=== PATIENT | female | born 1945 | race African-American/Black ===

== ENCOUNTER → 2016-11-27 | Outpatient (CLI) | payer MEDICARE, MEDICAID | LOC: WI 13:31 | PROVIDERS: ATTEND Internal Medicine | DX: Z12.31 Encounter for screening mammogram for malignant neoplasm of breast (principal) | CPT/HCPCS: 77067; G0202 ==

== ENCOUNTER 2017-07-06 10:23 | Emergency (ER) | payer MEDICARE, MEDICAID ==
--- NOTE | 2017-07-06 10:48 | ER Document Report ---
ED Fall <ALFREDA DOMINGO - Last Filed: 07/06/17 12:57> - General Mode of Arrival: Ambulatory Information source: Patient TRAVEL OUTSIDE OF THE [place] IN LAST 30 DAYS: No <TONI ROBLES - Last Filed: 07/06/17 13:27> - General Chief Complaint: Fall Stated Complaint: FALL/RIGHT HIP PAIN Time Seen by Provider: 07/06/17 10:36 Notes: Patient is a 72 year old female that presents to the emergency department today with complaints of a fall that occurred this morning. Patient states that she usually walks with a cane. Patient states she was getting out of bed this morning for the first time so she was not using a cane when she fell. Patient complains of right hip/side pain. Patient states she was unable to get up, EMS helped her up on their arrival. (TONI ROBLES) - Related data Allergies/Adverse Reactions: quetiapine fumarate [From Seroquel] Allergy (Unknown, Verified 07/04/16 09:17) pt unsure Past Medical History - General Information source: Patient - Social History Smoking Status: Never Smoker Cigarette use (# per day): No Chew tobacco use (# tins/day): No Frequency of alcohol use: None Drug Abuse: None Lives with: Family Family History: Reviewed & Not Pertinent Patient has suicidal ideation: No Patient has homicidal ideation: No - Past Medical History Cardiac Medical History: Reports: Hx Hypertension Pulmonary Medical History: Reports: Hx Asthma Neurological Medical History: Reports: Hx Cerebrovascular Accident - 2008, no residual effects, Hx Seizures - (only once) February 2016 (low sodium/potassium) Endocrine Medical History: Reports: Hx Hypothyroidism - Left Thyroidectomy Musculoskeltal Medical History: Reports Hx Arthritis Psychiatric Medical History: Reports: Hx Depression, Hx Post Traumatic Stress Disorder, Hx Schizoaffective Disorder, Hx Schizophrenia Past Surgical History: Reports: Hx Cholecystectomy, Hx Hysterectomy - Immunizations Hx Pneumococcal Vaccination: 05/28/11 <TONI ROBLES - Last Filed: 07/06/17 13:27> Review of Systems - Review of Systems Constitutional: No symptoms reported EENT: No symptoms reported Cardiovascular: No symptoms reported Respiratory: No symptoms reported Gastrointestinal: No symptoms reported Genitourinary: No symptoms reported Female Genitourinary: No symptoms reported Musculoskeletal: Other - Right hip/side pain Skin: No symptoms reported Hematologic/Lymphatic: No symptoms reported Neurological/Psychological: No symptoms reported -: Yes All other systems reviewed and negative <TONI ROBLES - Last Filed: 07/06/17 13:27> Physical Exam <ALFREDA DOMINGO - Last Filed: 07/06/17 12:57> <TONI ROBLES - Last Filed: 07/06/17 13:27> - Vital signs Vitals: Temp Pulse BP Pulse Ox 98.0 F 75 184/89 H 99 07/06/17 10:31 07/06/17 10:31 07/06/17 10:31 07/06/17 10:31 - Notes Notes: Physical Exam: General: Alert, appears age appropriate. HEENT: Normocephalic. Atraumatic. PERRL. Extraocular movements intact. Oropharynx clear. Neck: Supple. Non-tender. Respiratory: No respiratory distress. Clear and equal breath sounds bilaterally. Pain with palpation of the right inferior rib cage. Cardiovascular: Regular rate and rhythm. Abdominal: Obese. Non-tender. No distension. Normal Bowel Sounds. Back: Non-tender. No deformity or step off. Extremities: Moves all four extremities. Upper extremities: Normal inspection. Normal ROM. Lower extremities: Right hip tenderness with palpation, no pain with internal/ external manual rotation of the right hip. Tenderness with palpation at and superior to right iliac crest. Neurological: Normal cognition. AAOx4. Normal speech. Psychological: Normal affect. Normal Mood. Skin: Warm. Dry. Normal color. (TONI ROBLES) Course - Laboratory Result Diagrams: 07/06/17 11:59 07/06/17 11:59 <ALFREDA DOMINGO - Last Filed: 07/06/17 12:57> - Laboratory Result Diagrams: 07/06/17 11:59 07/06/17 11:59 <TONI ROBLES - Last Filed: 07/06/17 13:27> - Vital Signs Vital signs: Temp Pulse Resp BP Pulse Ox 98.0 F 75 184/89 H 99 07/06/17 10:31 07/06/17 10:31 07/06/17 10:31 07/06/17 10:31 - Laboratory Laboratory results interpreted by me: 07/06/17 07/06/17 07/06/17 11:00 11:59 11:59 Hgb 11.8 L Hct 34.5 L Potassium 3.5 L Est GFR ( Amer) 54 L Est GFR (Non-Af Amer) 45 L Urine Protein 30 H Urine Blood SMALL H Ur Leukocyte Esterase TRACE H Discharge <ALFREDA DOMINGO - Last Filed: 07/06/17 12:57> <TONI ROBLES - Last Filed: 07/06/17 13:27> - Discharge Clinical Impression: Hip pain, right Fall Qualifiers: Encounter type: initial encounter Qualified Code(s): W19.XXXA - Unspecified fall, initial encounter Low back pain Qualifiers: Chronicity: acute Back pain laterality: right Sciatica presence: without sciatica Qualified Code(s): M54.5 - Low back pain Condition: Stable Disposition: HOME, SELF-CARE Additional Instructions: There were no fractures found on x-ray evaluation of your injured hip and side regions. The lab work that was performed was all normal. You will be sore for a few days. You should take Tylenol for pain if needed. Always have your cane ready to help with balance when you walk. Follow-up with Dr. Ren if not improving. RETURN TO THE EMERGENCY ROOM IF ANY NEW OR WORSENING SYMPTOMS. Referrals: FRANDY REN MD [Primary Care Provider] - Follow up as needed Scribe Attestation: 07/06/17 12:56 I personally performed the services described in the documentation, reviewed and edited the documentation which was dictated to the scribe in my presence, and it accurately records my words and actions. (ALFREDA DOMINGO) Scribe Documentation - Scribe Written by Corbin:: Corbin Matson, 07/06/2017 1251 acting as scribe for :: Ashley <TONI ROBLES - Last Filed: 07/06/17 13:27>
--- NOTE | 2017-07-06 11:33 | RADIOLOGY REPORT (SQ) ---
EXAM DESCRIPTION: HIP RIGHT AP/LATERAL COMPLETED DATE/TIME: 07/06/2017 11:20 am REASON FOR STUDY: fall, R hip and LBP COMPARISON: 07/17/2016. NUMBER OF VIEWS: Two views. TECHNIQUE: AP pelvis and additional frog-leg view of the right hip. LIMITATIONS: None. FINDINGS: MINERALIZATION: Normal. RIGHT HIP: Stable hip prosthesis. LEFT HIP: Stable hip prosthesis. PUBIS AND ISCHIUM: No fracture. PELVIS: No fracture. SACRUM: No fracture or dislocation. No worrisome bone lesions. LOWER LUMBAR SPINE: No fracture or dislocation. No worrisome bone lesions. No significant disc disea se. SOFT TISSUES: No findings. OTHER: No other significant finding. IMPRESSION: STABLE BILATERAL HIP PROSTHESES. NO ACUTE FINDINGS. TECHNICAL DOCUMENTATION: JOB ID: [id number] [employer]- All Rights Reserved
--- NOTE | 2017-07-06 11:34 | RADIOLOGY REPORT (SQ) ---
EXAM DESCRIPTION: L SPINE 2 VIEWS COMPLETED DATE/TIME: 07/06/2017 11:20 am REASON FOR STUDY: fall, R hip and LBP COMPARISON: None. NUMBER OF VIEWS: Three views. TECHNIQUE: AP, lateral, and inferior coned down lateral views of the lumbar spine. LIMITATIONS: None. FINDINGS: MINERALIZATION: Normal. SEGMENTATION: Normal. No transitional anatomy. ALIGNMENT: Grade 1 anterolisthesis of L4 on L5. VERTEBRAE: Maintained height. No fracture or worrisome bone lesion. DISCS: Multilevel disc space narrowing with osteophytes. POSTERIOR ELEMENTS: Pedicles and facets are intact. No pars defect or posterior arch defects. Facet arthropathy is present. HARDWARE: None in the spine. PARASPINAL SOFT TISSUES: Normal. PELVIS: Intact as visualized. No fractures or worrisome bone lesions. SI joints intact. OTHER: No other significant finding. IMPRESSION: MULTILEVEL DEGENERATIVE CHANGES. GRADE 1 ANTEROLISTHESIS OF L 4 ON L5. NO ACUTE FINDIN GS. TECHNICAL DOCUMENTATION: JOB ID: [id number] [employer]- All Rights Reserved
[2017-07-06 11:53] LABS: APPEARANCE,URINE CLEAR; BILIRUBIN,URINE NEGATIVE (NEGATIVE); GLUCOSE, URINE NEGATIVE (NEGATIVE); KETONES,URINE NEGATIVE (NEGATIVE); LEUKOCYTE ESTERASE,URINE TRACE (NEGATIVE); NITRITE,URINE NEGATIVE (NEGATIVE); PROTEIN,URINE 30 mg/dL (NEGATIVE); URINE SPECIFIC GRAVITY 1.004; UROBILINOGEN,URINE NEGATIVE mg/dL (<2.0)
[2017-07-06 11:55] LABS: RBC,URINE RARE /HPF; WBC,URINE RARE /HPF
[2017-07-06 12:18] LABS: ABSOLUTE LYMPHOCYTES (AUTO) 1.2 10^3/uL (0.5-4.7); ABSOLUTE MONOCYTES (AUTO) 0.9 10^3/uL (0.1-1.4); ABSOLUTE NEUT (AUTO) 6.6 10^3/uL (1.7-8.2); BASOPHILS % (AUTO) 0.4 % (0-2); EOSINOPHILS % (AUTO) 0.3 % (0-6); HEMATOCRIT 34.5 % (36.0-47.0); HEMOGLOBIN 11.8 g/dL (12.0-15.5); HGB HCT DIFFERENCE 0.9; LYMPHOCYTES % (AUTO) 13.7 % (13-45); MEAN CORPUSCULAR HEMOGLOBIN 31.6 pg (27.0-33.4); MEAN CORPUSCULAR HGB CONC 34.3 g/dL (32.0-36.0); MEAN CORPUSCULAR VOLUME 92 fl (80-97); MONOCYTES % (AUTO) 10.3 % (3-13); RED BLOOD COUNT 3.75 10^6/uL (3.72-5.28); RED CELL DISTRIBUTION WIDTH 13.3 % (11.5-14.0); SEGMENTED NEUTROPHILS % (AUTO) 75.3 % (42-78); WHITE BLOOD COUNT 8.8 10^3/uL (4.0-10.5)
[2017-07-06 12:42] LABS: ALANINE AMINOTRANSFERASE 29 U/L (9-52); ALBUMIN 4.6 g/dL (3.5-5.0); ALKALINE PHOSPHATASE 77 U/L (38-126); ANION GAP 14 (5-19); ASPARTATE AMINO TRANSFERASE 25 U/L (14-36); BILIRUBIN,DIRECT 0.3 mg/dL (0.0-0.4); BILIRUBIN,TOTAL 0.9 mg/dL (0.2-1.3); BLOOD UREA NITROGEN 19 mg/dL (7-20); CALCIUM 9.7 mg/dL (8.4-10.2); CARBON DIOXIDE 26 mmol/L (22-30); CHLORIDE 99 mmol/L (98-107); CREATININE RESULT 1.18 mg/dL (0.52-1.25); GLUCOSE 101 mg/dL (75-110); POTASSIUM 3.5 mmol/L (3.6-5.0); SODIUM 138.9 mmol/L (137-145); TOTAL PROTEIN 7.6 g/dL (6.3-8.2)
[2017-07-06 13:57] VITALS: BP 159/87
== END 2017-07-06 13:45 | disposition home or self-care (01) ==
LOC: ER 10:23
DX: M25.551 Pain in right hip (principal); M54.5 Low back pain; W19.XXXA Unspecified fall, initial encounter; Y93.89 Activity, other specified; Y92.003 Bedroom of unspecified non-institutional (private) residence as the place of occurrence of the external cause; I10 Essential (primary) hypertension; J45.909 Unspecified asthma, uncomplicated; Z88.8 Allergy status to other drugs, medicaments and biological substances
CPT/HCPCS: 36415; 72100; 80053; 81001; 85025; 99284

== ENCOUNTER → 2017-11-29 | Outpatient (CLI) | payer MEDICARE, MEDICAID ==
--- NOTE | 2017-11-29 14:06 | WOMENS IMAGING REPORT ---
EXAM DESCRIPTION: 3D SCREENING MAMMO BILAT COMPLETED DATE/TIME: 11/29/2017 1:12 pm REASON FOR STUDY: ROUTINE SCREENING; Z12.31 Z12.31 ENCNTR SCREEN MAMMOGRAM FOR MALIGNANT NEOPLASM O F [place] COMPARISON: 11/27/2016 and 09/24/2015. TECHNIQUE: Standard craniocaudal and mediolateral oblique views of each breast recorded using digita l acquisition and breast tomosynthesis. LIMITATIONS: None. FINDINGS: Findings present which are benign by mammographic criteria. No suspicious masses, calcifi cations or architectural distortion. Pertinent benign findings: Stable calcifications. Read with the assistance of CAD. .[facility] - R2 Cenova Version 1.3 .[facility] - R2 Cenova Version 1.3 .[facility] - R2 Cenova Version 2.4 .[facility] - R2 Cenova Version 2.4 .[facility] - R2 Border Inspector Version 9.2 Benign mammographic findings may include one or more of the following: Smooth masses, popcorn/rim/co arse calcifications, asymmetries, post-procedure changes, and lesions with long-standing stability. IMPRESSION: BENIGN MAMMOGRAPHIC FINDINGS. BIRADS 2 BREAST DENSITY: b. There are scattered areas of fibroglandular density. BIRAD: 2 BENIGN FINDING(S) RECOMMENDATION: RECOMMENDATION: ROUTINE SCREENING COMMENT: The patient has been notified of the results by letter per SA requirements. Additional no tification policies are in place for contacting patient with suspicious or incomplete findings. Quality ID #225: The [employer] recommends an annual screening mammogram for women aged 40 years or over. This facility utilizes a reminder system to ensure that all patients receive reminder letters, and/or direct phone calls for appointments. This includes reminders for routine scr eening mammograms, diagnostic mammograms, or other Breast Imaging Interventions when appropriate. Th is patient will be placed in the appropriate reminder system. The [employer] (ACR) has developed recommendations for screening MRI of the breast s in certain patient populations, to be used in conjunction with mammography. Breast MRI surveillanc e may be appropriate for women with more than 20% lifetime risk of developing breast cancer as deter mined by genetic testing, significant family history of the disease, or history of mantle radiation f or Hodgkins Disease. ACR Practice Guidelines 2008. DBT Technology DBT is a type of tomographic mammography. With conventional mammography, overlapping breast tissue ma y make lesions difficult to detect, even with good compression. DBT uses an x-ray tube that rotates a round the breast, taking images at different angles. These images are then combined to create thin sl ices of the breast that the radiologist can view as a 3D reconstruction. The [employer] unit can perform full-field digital mammograms (2D imaging); or DBT (3D imaging); or both, in a combination mode that quickly performs both the mammogram and the tomosynthesis scan while the breast is still compressed. PQRS 6045F: Fluoroscopic imaging is not utilized for breast tomosynthesis. TECHNICAL DOCUMENTATION: FINDING NUMBER: (1) ASSESSMENT: (1) JOB ID: [id number] [employer]- All Rights Reserved Reading location - IP/workstation name: [email or web address]
== END ==
LOC: WI 12:46
PROVIDERS: ATTEND Internal Medicine
DX: Z12.31 Encounter for screening mammogram for malignant neoplasm of breast (principal)
CPT/HCPCS: 77063; 77067

== ENCOUNTER → 2018-12-04 | Outpatient (CLI) | payer MEDICARE, MEDICAID ==
--- NOTE | 2018-12-05 10:33 | WOMENS IMAGING REPORT ---
EXAM DESCRIPTION: 3D SCREENING MAMMO BILAT COMPLETED DATE/TIME: 12/04/2018 2:56 pm REASON FOR STUDY: Z12.31 ROUTINE 3D BILATERAL SCREENING Z12.31 ENCNTR SCREEN MAMMOGRAM FOR MALIGNAN T NEOPLASM OF [place] COMPARISON: Multiple since 2011 TECHNIQUE: Standard craniocaudal and mediolateral oblique views of each breast recorded using digita l acquisition and breast tomosynthesis. LIMITATIONS: None. FINDINGS: Findings present which are benign by mammographic criteria. No suspicious masses, calcific ations or architectural distortion. Pertinent benign findings: Stable benign bilateral breast parenchymal calcifications Read with the assistance of CAD. .[facility] - R2 Trigonometry Tutor Version 9.2 Benign mammographic findings may include one or more of the following: Smooth masses, popcorn/rim/coa rse calcifications, asymmetries, post-procedure changes, and lesions with long-standing stability. IMPRESSION: BENIGN MAMMOGRAPHIC FINDINGS. BIRADS 2 BREAST DENSITY: c. The breasts are heterogeneously dense, which may obscure small masses. BIRAD: 2 BENIGN FINDING(S) RECOMMENDATION: ROUTINE SCREENING COMMENT: The patient has been notified of the results by letter per SA requirements. Additional no tification policies are in place for contacting patient with suspicious or incomplete findings. Quality ID #225: The [employer] recommends an annual screening mammogram for women aged 40 years or over. This facility utilizes a reminder system to ensure that all patients receive reminder letters, and/or direct phone calls for appointments. This includes reminders for routine scr eening mammograms, diagnostic mammograms, or other Breast Imaging Interventions when appropriate. Th is patient will be placed in the appropriate reminder system. TECHNICAL DOCUMENTATION: FINDING NUMBER: (1) ASSESSMENT: (1) JOB ID: [id number] [employer]- All Rights Reserved Reading location - IP/workstation name: [email or web address]-RR
== END ==
LOC: WI 14:27
PROVIDERS: ATTEND Internal Medicine
DX: Z12.31 Encounter for screening mammogram for malignant neoplasm of breast (principal)
CPT/HCPCS: 77063; 77067

== ENCOUNTER 2019-04-02 12:47 | Inpatient (IN) | payer MEDICARE, MEDICAID ==
[2019-04-02 16:04] LABS: APPEARANCE,URINE CLEAR; BILIRUBIN,URINE NEGATIVE (NEGATIVE); COLOR,URINE YELLOW; GLUCOSE, URINE NEGATIVE (NEGATIVE); KETONES,URINE NEGATIVE (NEGATIVE); LEUKOCYTE ESTERASE,URINE NEGATIVE (NEGATIVE); NITRITE,URINE NEGATIVE (NEGATIVE); PROTEIN,URINE NEGATIVE (NEGATIVE); URINE SPECIFIC GRAVITY 1.009; UROBILINOGEN,URINE NEGATIVE mg/dL (<2.0)
[2019-04-02 16:25] LABS: ABSOLUTE RETICS # 0.067 10^6/uL (0.028-0.122); HEMATOCRIT 31.3 % (36.0-47.0); HEMOGLOBIN 10.7 g/dL (12.0-15.5); MEAN CORPUSCULAR HEMOGLOBIN 31.3 pg (27.0-33.4); MEAN CORPUSCULAR HGB CONC 34.2 g/dL (32.0-36.0); MEAN CORPUSCULAR VOLUME 91 fl (80-97); PLATELET COUNT 330 10^3/uL (150-450); RED BLOOD COUNT 3.42 10^6/uL (3.72-5.28); RED CELL DISTRIBUTION WIDTH 13.3 % (11.5-14.0); RETICULOCYTE COUNT (AUTO) 1.95 % (0.66-2.85)
[2019-04-02 16:27] LABS: OSMOLALITY,URINE 261 mOsm/kg (300-900)
[2019-04-02 16:35] LABS: URINE SODIUM 15 mmol/L (30-90)
[2019-04-02 16:41] LABS: ALBUMIN 4.3 g/dL (3.5-5.0); ALKALINE PHOSPHATASE 62 U/L (38-126); ANION GAP 10 (5-19); ASPARTATE AMINO TRANSFERASE 23 U/L (14-36); BILIRUBIN,DIRECT 0.2 mg/dL (0.0-0.4); BILIRUBIN,TOTAL 0.8 mg/dL (0.2-1.3); BLOOD UREA NITROGEN 23 mg/dL (7-20); CALCIUM 9.3 mg/dL (8.4-10.2); CARBON DIOXIDE 30 mmol/L (22-30); CHLORIDE 89 mmol/L (98-107); GLUCOSE 86 mg/dL (75-110); IRON(TIBC) 50.7 ug/dL (37-170); POTASSIUM 3.8 mmol/L (3.6-5.0); TOTAL PROTEIN 7.4 g/dL (6.3-8.2)
[2019-04-02] MEDS: NORMAL SALINE 1000 ML 1,000 ML IV PRN (17:37)
--- NOTE | 2019-04-02 19:00 | PDOC H&P ---
History of Present Illness Admission Date/PCP: 04/02/19 12:47 FRANDY REN MD History of Present Illness: GET OTTO is a 73 year old female, She was admitted directly from out patient into the hospital for evaluation and management of hyponatremia, acute kidney injury. She came to the office yesterday for follow-up evaluation, she complained of generalized malaise, comprehensive metabolic panel was drawn in the office, result came back today demonstrating hyponatremia with serum sodium 128, the serum creatinine was 1.4, because of the abnormal lab data she was called this morning to be admitted to the hospital for further management of her symptoms. The metabolic profile that was drawn in the hospital demonstrated serum sodium, 128, serum creatinine 1.28 the serum osmolality was low the urine osmolality was elevated the urine sodium was low the pattern is consistent with syndrome of inappropriate ADH secretion because clinically she is Euvolemic Past Medical History Cardiac Medical History: Reports: Hypertension Pulmonary Medical History: Reports: Asthma Neurological Medical History: Reports: Seizures - (only once) February 2016 (low sodium/potassium) Endocrine Medical History: Reports: Hypothyroidism - Left Thyroidectomy Musculoskeltal Medical History: Reports: Arthritis Psychiatric Medical History: Reports: Depression, Post Traumatic Stress Disorder, Schizoaffective Disorder Hematology: Reports: Anemia - hx blood transfusion Past Surgical History Past Surgical History: Reports: Cholecystectomy, Hysterectomy Social History Smoking Status: Never Smoker Frequency of Alcohol Use: None Hx Recreational Drug Use: No Drugs: None Hx Prescription Drug Abuse: No Family History Family History: Reviewed & Not Pertinent Parental Family History Reviewed: Yes Children Family History Reviewed: Yes Sibling(s) Family History Reviewed.: Yes Medication/Allergy Home Medications: Trazodone HCl 200 mg PO QHS PRN 05/29/11 Citalopram Hydrobromide [Celexa] 40 mg PO QPM 09/13/11 Olanzapine [Zyprexa] 20 mg PO QHS 09/13/11 Aspirin [Ecotrin 81 mg EC Tablet] 1 tab PO QAM 02/25/16 Diazepam [Valium 2 mg Tablet] 1 tab PO BID 02/25/16 Enalapril/Hydrochlorothiazide [Vaseretic 10-25 mg Tablet] 1 tab PO QAM 02/25/16 Chrom Daryn/Brindal Buck [Garcinia Cambogia Tablet] 1 each PO DAILY 04/02/19 Cyanocobalamin (Vitamin B-12) [B-12] 500 mcg PO QAM 04/02/19 Ferrous Sulfate 324 mg PO DAILY 04/02/19 Ginkgo Biloba [facility] Extract [Ginkgo] 60 mg PO DAILY 04/02/19 Haloperidol [Haldol 2 mg Tablet] 1 mg PO QHS 04/02/19 Metoprolol Succinate 100 mg PO DAILY 04/02/19 Mirabegron [Myrbetriq] 50 mg PO DAILY 04/02/19 Allergies/Adverse Reactions: quetiapine fumarate [From Seroquel] Allergy (Unknown, Verified 07/04/16 09:17) pt unsure Review of Systems Constitutional: ABSENT: chills, fever(s), headache(s), weight gain, weight loss Eyes: ABSENT: visual disturbances Ears: ABSENT: hearing changes Cardiovascular: ABSENT: chest pain, dyspnea on exertion, edema, orthropnea, palpitations Respiratory: ABSENT: cough, hemoptysis Gastrointestinal: ABSENT: abdominal pain, constipation, diarrhea, hematemesis, hematochezia, nausea, vomiting Genitourinary: ABSENT: dysuria, hematuria Musculoskeletal: ABSENT: joint swelling Integumentary: ABSENT: rash, wounds Neurological: ABSENT: abnormal gait, abnormal speech, confusion, dizziness, focal weakness, syncope Psychiatric: ABSENT: anxiety, depression, homidical ideation, suicidal ideation Endocrine: ABSENT: cold intolerance, heat intolerance, menstrual abnormalities, polydipsia, polyuria Hematologic/Lymphatic: ABSENT: easy bleeding, easy bruising, lymphadenopathy Physical Exam Vital Signs: Temp Pulse Resp BP Pulse Ox 97.5 F 64 16 150/48 H 100 04/02/19 17:14 04/02/19 17:14 04/02/19 17:14 04/02/19 17:14 04/02/19 17:14 Intake & Output 04/01/19 04/02/19 04/03/19 06:59 06:59 06:59 Intake Total 702 Balance 702 General appearance: PRESENT: no acute distress Eye exam: PRESENT: PERRLA Mouth exam: PRESENT: dry mucosa Respiratory exam: PRESENT: clear to auscultation janusz Cardiovascular exam: PRESENT: +S1, +S2 GI/Abdominal exam: PRESENT: soft Neurological exam: PRESENT: alert Results Laboratory Results: 04/02/19 16:11 04/02/19 16:11 04/02/19 04/02/19 04/02/19 15:15 15:15 16:11 WBC RBC Hgb Hct MCV MCH MCHC RDW Plt Count Retic Count (auto) Sodium Potassium Chloride Carbon Dioxide Anion Gap BUN Creatinine Est GFR ( Amer) Glucose Serum Osmolality 265 L Calcium Iron TIBC % Saturation Ferritin Total Bilirubin AST Alkaline Phosphatase Total Protein Albumin Vitamin B12 Folate Urine Color YELLOW Urine Appearance CLEAR Urine pH 6.0 Ur Specific [place] 1.009 Urine Protein NEGATIVE Urine Glucose (UA) NEGATIVE Urine Ketones NEGATIVE Urine Blood SMALL H Urine Nitrite NEGATIVE Ur Leukocyte Esterase NEGATIVE Urine WBC (Auto) 1 Urine RBC (Auto) 2 Urine Osmolality 261 L 04/02/19 04/02/19 04/02/19 16:11 16:11 16:11 WBC 7.0 RBC 3.42 L Hgb 10.7 L Hct 31.3 L MCV 91 MCH 31.3 MCHC 34.2 RDW 13.3 Plt Count 330 Retic Count (auto) 1.95 Sodium 128.5 L Potassium 3.8 Chloride 89 L Carbon Dioxide 30 Anion Gap 10 BUN 23 H Creatinine 1.28 H Est GFR ( Amer) 49 L Glucose 86 Serum Osmolality Calcium 9.3 Iron 50.7 TIBC 268 % Saturation 19 Ferritin 462.00 H Total Bilirubin 0.8 AST 23 Alkaline Phosphatase 62 Total Protein 7.4 Albumin 4.3 Vitamin B12 > 1000.0 H Folate 10.00 Urine Color Urine Appearance Urine pH Ur Specific [place] Urine Protein Urine Glucose (UA) Urine Ketones Urine Blood Urine Nitrite Ur Leukocyte Esterase Urine WBC (Auto) Urine RBC (Auto) Urine Osmolality Assessment & Plan - Diagnosis (1) Acute kidney injury Is this a current diagnosis for this admission?: Yes Plan: This is most likely prerenal acute kidney injury, kidney ultrasound is ordered to evaluate for post renal causes of acute kidney injury, looking for hydronephrosis, she will be treated with intravenous volume frame coverer normal saline, we continue to monitor chemistry daily (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
[2019-04-02] MEDS ORDERED: (PENDING PHARMACY ID) (Trazodone Hcl [Trazodone Hcl] 200 MG) PO PRN (19:02)
[2019-04-02] MEDS ORDERED: (PENDING PHARMACY ID) (Ferrous Sulfate [Ferrous Sulfate] 324 MG) PO SCH (19:15)
[2019-04-02] MEDS ORDERED: (PENDING PHARMACY ID) (Metoprolol Succinate [Metoprolol Succinate] 100 MG) PO SCH (19:15)
[2019-04-02] MEDS ORDERED: ENALAPRIL PO SCH (19:15)
[2019-04-02] MEDS ORDERED: (PENDING PHARMACY ID) (Cyanocobalamin (Vitamin B-12) [B-12] 500 MCG) PO SCH (19:15)
[2019-04-02] MEDS ORDERED: HYDROCHLOROTHIAZIDE PO SCH (19:15)
[2019-04-02] MEDS ORDERED: (PENDING PHARMACY ID) (Mirabegron [Myrbetriq] 50 MG) PO SCH (19:15)
[2019-04-02] MEDS ORDERED: TRAZODONE HCL 50 MG TABLET PO PRN (20:41)
[2019-04-02] MEDS: FERROUS SULFATE 325 MG TABLET PO SCH (21:15)
[2019-04-02] MEDS: ASPIRIN 81 MG TABLET, ENT COATED PO SCH (21:15)
[2019-04-02] MEDS: CITALOPRAM HYDROBROMIDE 20 MG TABLET PO SCH (21:15)
[2019-04-02] MEDS: HYDROCHLOROTHIAZIDE 25 MG TABLET PO SCH (21:16)
[2019-04-02] MEDS: DIAZEPAM 2 MG TABLET PO SCH (21:17)
[2019-04-02] MEDS: ENALAPRIL MALEATE 10 MG TABLET PO SCH (21:17)
[2019-04-02] MEDS: METOPROLOL SUCCINATE 50 MG TAB.SR.24H PO SCH (21:17)
[2019-04-02] MEDS: OLANZAPINE 5 MG TABLET PO SCH (21:18)
[2019-04-02] MEDS: CYANOCOBALAMIN (VITAMIN B-12) 1,000 MCG TABLET PO SCH (21:18)
[2019-04-02] MEDS: HALOPERIDOL 1 MG TABLET PO SCH (21:48)
[2019-04-02] MEDS ORDERED: HALOPERIDOL 2 MG TABLET PO SCH (22:00)
--- NOTE | 2019-04-03 05:44 | RADIOLOGY REPORT (SQ) ---
CLINICAL HISTORY: acute kidney injury COMPARISON: None. TECHNIQUE: US RETROPERITONEUM on 04/03/2019 12:00 AM CDT FINDINGS: Right kidney measures 9.6 cm and left kidney measures 9.92 m. There is a 2.1 cm upper pole right renal cyst, simple in configuration. Left kidney contains tiny upper pole calcification. Urinary bladder is grossly unremarkable. IMPRESSION: Left nephrolithiasis. No hydronephrosis bilaterally.
[2019-04-03] MEDS: ENALAPRIL MALEATE 10 MG TABLET PO SCH (08:18)
[2019-04-03] MEDS: CYANOCOBALAMIN (VITAMIN B-12) 1,000 MCG TABLET PO SCH (08:18)
[2019-04-03] MEDS: ASPIRIN 81 MG TABLET, ENT COATED PO SCH (08:18)
[2019-04-03] MEDS: HYDROCHLOROTHIAZIDE 25 MG TABLET PO SCH (08:18)
[2019-04-03] MEDS: DIAZEPAM 2 MG TABLET PO SCH ×2 (09:17→21:24)
[2019-04-03] MEDS: FERROUS SULFATE 325 MG TABLET PO SCH (09:17)
[2019-04-03] MEDS: METOPROLOL SUCCINATE 50 MG TAB.SR.24H PO SCH (09:17)
[2019-04-03] MEDS: NORMAL SALINE 1000 ML 1,000 ML IV PRN ×2 (09:17→21:20)
[2019-04-03 10:07] LABS: ABSOLUTE BASOPHILS # (AUTO) 0.1 10^3/uL (0.0-0.2); ABSOLUTE EOSINOPHILS # (AUTO) 0.1 10^3/uL (0.0-0.6); ABSOLUTE LYMPHOCYTES (AUTO) 1.3 10^3/uL (0.5-4.7); ABSOLUTE MONOCYTES (AUTO) 0.6 10^3/uL (0.1-1.4); ABSOLUTE NEUT (AUTO) 3.6 10^3/uL (1.7-8.2); BASOPHILS % (AUTO) 0.9 % (0-2); EOSINOPHILS % (AUTO) 2.4 % (0-6); HEMATOCRIT 33.8 % (36.0-47.0); HEMOGLOBIN 11.5 g/dL (12.0-15.5); LYMPHOCYTES % (AUTO) 23.4 % (13-45); MEAN CORPUSCULAR HEMOGLOBIN 31.5 pg (27.0-33.4); MEAN CORPUSCULAR HGB CONC 34.1 g/dL (32.0-36.0); MEAN CORPUSCULAR VOLUME 92 fl (80-97); MONOCYTES % (AUTO) 10.8 % (3-13); PLATELET COUNT 331 10^3/uL (150-450); RED BLOOD COUNT 3.67 10^6/uL (3.72-5.28); RED CELL DISTRIBUTION WIDTH 13.1 % (11.5-14.0); SEGMENTED NEUTROPHILS % (AUTO) 62.5 % (42-78); TOTAL CELLS COUNTED % (AUTO) 100 %; WHITE BLOOD COUNT 5.8 10^3/uL (4.0-10.5)
[2019-04-03 10:29] LABS: ALBUMIN 4.5 g/dL (3.5-5.0); ALKALINE PHOSPHATASE 63 U/L (38-126); ANION GAP 13 (5-19); ASPARTATE AMINO TRANSFERASE 23 U/L (14-36); BILIRUBIN,DIRECT 0.3 mg/dL (0.0-0.4); BILIRUBIN,TOTAL 0.8 mg/dL (0.2-1.3); BLOOD UREA NITROGEN 18 mg/dL (7-20); CALCIUM 9.5 mg/dL (8.4-10.2); CARBON DIOXIDE 29 mmol/L (22-30); CHLORIDE 89 mmol/L (98-107); GLUCOSE 145 mg/dL (75-110); POTASSIUM 3.9 mmol/L (3.6-5.0); TOTAL PROTEIN 7.8 g/dL (6.3-8.2)
[2019-04-03] MEDS: CITALOPRAM HYDROBROMIDE 20 MG TABLET PO SCH (17:27)
--- NOTE | 2019-04-03 20:02 | PDOC PROGRESS REPORT ---
Subjective Progress Note for:: 04/03/19 Subjective:: Patient was admitted yesterday, she was seen by the bedside, she feels better today Reason For Visit: ACUTE KIDNEY INJURY,HYPONATREMIA,ANEMIA Physical Exam Vital Signs: Temp Pulse Resp BP Pulse Ox 97.6 F 58 L 16 160/57 H 100 04/03/19 15:43 04/03/19 19:00 04/03/19 15:43 04/03/19 15:43 04/03/19 15:43 Intake & Output 04/02/19 04/03/19 04/04/19 06:59 06:59 06:59 Intake Total 2102 985 Output Total 400 2450 Balance 1702 -1465 Weight 92.7 kg 94.5 kg General appearance: PRESENT: no acute distress Head exam: PRESENT: atraumatic, normocephalic Eye exam: PRESENT: PERRLA Neck exam: PRESENT: full ROM Respiratory exam: PRESENT: clear to auscultation janusz Cardiovascular exam: PRESENT: RRR, +S1, +S2 Vascular exam: PRESENT: normal capillary refill GI/Abdominal exam: PRESENT: normal bowel sounds, soft Rectal exam: PRESENT: deferred Neurological exam: PRESENT: alert, CN II-XII grossly intact Skin exam: PRESENT: dry, intact, warm Results Laboratory Results: 04/03/19 09:47 04/03/19 09:47 04/03/19 04/03/19 09:47 09:47 WBC 5.8 RBC 3.67 L Hgb 11.5 L Hct 33.8 L MCV 92 MCH 31.5 MCHC 34.1 RDW 13.1 Plt Count 331 Seg Neutrophils % 62.5 Sodium 130.9 L Potassium 3.9 Chloride 89 L Carbon Dioxide 29 Anion Gap 13 BUN 18 Creatinine 1.08 Est GFR ( Amer) > 60 Glucose 145 H Calcium 9.5 Total Bilirubin 0.8 AST 23 Alkaline Phosphatase 63 Total Protein 7.8 Albumin 4.5 Impressions: Renal Ultrasound 04/03/19 00:00 IMPRESSION: Left nephrolithiasis. No hydronephrosis bilaterally. 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
[2019-04-03] MEDS: HALOPERIDOL 1 MG TABLET PO SCH (21:24)
[2019-04-03] MEDS: OLANZAPINE 5 MG TABLET PO SCH (21:25)
[2019-04-04] MEDS: HYDROCHLOROTHIAZIDE 25 MG TABLET PO SCH (08:15)
[2019-04-04] MEDS: CYANOCOBALAMIN (VITAMIN B-12) 1,000 MCG TABLET PO SCH (08:17)
[2019-04-04] MEDS: ASPIRIN 81 MG TABLET, ENT COATED PO SCH (08:18)
[2019-04-04] MEDS: ENALAPRIL MALEATE 10 MG TABLET PO SCH (08:26)
[2019-04-04] MEDS: FERROUS SULFATE 325 MG TABLET PO SCH (11:38)
[2019-04-04] MEDS: METOPROLOL SUCCINATE 50 MG TAB.SR.24H PO SCH (11:38)
[2019-04-04] MEDS: DIAZEPAM 2 MG TABLET PO SCH (11:39)
[2019-04-04] MEDS: NORMAL SALINE 1000 ML 1,000 ML IV PRN (11:39)
[2019-04-04 14:21] LABS: ABSOLUTE EOSINOPHILS # (AUTO) 0.1 10^3/uL (0.0-0.6); ABSOLUTE LYMPHOCYTES (AUTO) 1.4 10^3/uL (0.5-4.7); ABSOLUTE MONOCYTES (AUTO) 0.7 10^3/uL (0.1-1.4); ABSOLUTE NEUT (AUTO) 3.6 10^3/uL (1.7-8.2); BASOPHILS % (AUTO) 0.8 % (0-2); EOSINOPHILS % (AUTO) 2.2 % (0-6); HEMATOCRIT 32.9 % (36.0-47.0); LYMPHOCYTES % (AUTO) 24.2 % (13-45); MEAN CORPUSCULAR HEMOGLOBIN 30.9 pg (27.0-33.4); MEAN CORPUSCULAR HGB CONC 33.3 g/dL (32.0-36.0); MEAN CORPUSCULAR VOLUME 93 fl (80-97); MONOCYTES % (AUTO) 11.1 % (3-13); PLATELET COUNT 319 10^3/uL (150-450); RED BLOOD COUNT 3.55 10^6/uL (3.72-5.28); RED CELL DISTRIBUTION WIDTH 13.4 % (11.5-14.0); SEGMENTED NEUTROPHILS % (AUTO) 61.7 % (42-78); TOTAL CELLS COUNTED % (AUTO) 100 %; WHITE BLOOD COUNT 5.9 10^3/uL (4.0-10.5)
[2019-04-04 14:41] LABS: ALKALINE PHOSPHATASE 59 U/L (38-126); ANION GAP 11 (5-19); ASPARTATE AMINO TRANSFERASE 19 U/L (14-36); BILIRUBIN,DIRECT 0.3 mg/dL (0.0-0.4); BILIRUBIN,TOTAL 0.5 mg/dL (0.2-1.3); BLOOD UREA NITROGEN 17 mg/dL (7-20); CALCIUM 9.2 mg/dL (8.4-10.2); CARBON DIOXIDE 26 mmol/L (22-30); CHLORIDE 98 mmol/L (98-107); GLUCOSE 114 mg/dL (75-110); POTASSIUM 3.8 mmol/L (3.6-5.0); TOTAL PROTEIN 6.8 g/dL (6.3-8.2)
[2019-04-04 17:14] VITALS: BP 179/86
--- NOTE | 2019-04-04 17:53 | PDOC DISCHARGE SUMMARY ---
General - Admit/Disc Date/PCP Admission Date/Primary Care Provider: 04/02/19 12:47 FRANDY REN MD Discharge Date: 04/04/19 - Discharge Diagnosis (1) Acute kidney injury Is this a current diagnosis for this admission?: Yes (2) Syndrome of inappropriate ADH (SIADH) secretion Is this a current diagnosis for this admission?: Yes (3) Hyponatremia Is this a current diagnosis for this admission?: Yes - Additional Information Prescriptions: Enalapril Maleate [Vasotec 10 mg Tablet] 10 mg PO DAILY #90 tablet Home Medications: Trazodone HCl 200 mg PO QHS PRN 05/29/11 Citalopram Hydrobromide [Celexa] 40 mg PO QPM 09/13/11 Olanzapine [Zyprexa] 20 mg PO QHS 09/13/11 Aspirin [Ecotrin 81 mg EC Tablet] 1 tab PO QAM 02/25/16 Diazepam [Valium 2 mg Tablet] 1 tab PO BID 02/25/16 Chrom Daryn/Brindal Buck [Garcinia Cambogia Tablet] 1 each PO DAILY 04/02/19 Cyanocobalamin (Vitamin B-12) [B-12] 500 mcg PO QAM 04/02/19 Ferrous Sulfate 324 mg PO DAILY 04/02/19 Ginkgo Biloba [place] Extract [Ginkgo] 60 mg PO DAILY 04/02/19 Haloperidol [Haldol 2 mg Tablet] 1 mg PO QHS 04/02/19 Metoprolol Succinate 100 mg PO DAILY 04/02/19 Mirabegron [Myrbetriq] 50 mg PO DAILY 04/02/19 Enalapril Maleate [Vasotec 10 mg Tablet] 10 mg PO DAILY #90 tablet 04/04/19 History of Present Illness History of Present Illness: GET OTTO is a 73 year old female, She was admitted directly from outpatient into the hospital for evaluation and management of hyponatremia, acute kidney injury. She came to the office yesterday for follow-up evaluation, she complained of generalized malaise, comprehensive metabolic panel was drawn in the office, result came back today demonstrating hyponatremia with serum sodium 128, the serum creatinine was 1.4, because of the abnormal lab data she was called this morning to be admitted to the hospital for further management of her symptoms. The metabolic profile that was drawn in the hospital demonstrated serum sodium, 128, serum creatinine 1.28 the serum osmolality was low the urine osmolality was elevated the urine sodium was low the pattern is consistent with syndrome of inappropriate ADH secretion because clinically she is Euvolemic Hospital Course Hospital Course: Patient was admitted for the management of acute kidney injury, hyponatremia, dehydration, she has hyponatremia of SIADH type, she was treated with intravenous infusion normal saline with normalization of kidney function and also the serum sodium. Patient is stable for discharge Physical Exam Vital Signs: Temp Pulse Resp BP Pulse Ox 97.8 F 72 16 179/86 H 100 04/04/19 15:50 04/04/19 15:50 04/04/19 15:50 04/04/19 12:20 04/04/19 15:50 Intake & Output 04/03/19 04/04/19 04/05/19 06:59 06:59 06:59 Intake Total 2102 2457 1000 Output Total 400 2700 Balance 1702 -243 1000 Weight 92.7 kg 94.5 kg 94.1 kg General appearance: PRESENT: no acute distress Head exam: PRESENT: atraumatic, normocephalic Eye exam: PRESENT: conjunctiva pink, EOMI, PERRLA Ear exam: PRESENT: normal external ear exam Mouth exam: PRESENT: moist, tongue midline Neck exam: PRESENT: full ROM Respiratory exam: PRESENT: clear to auscultation janusz Cardiovascular exam: PRESENT: RRR, +S1, +S2 Pulses: PRESENT: normal dorsalis pedis pul, +2 pedal pulses bilateral Vascular exam: PRESENT: normal capillary refill GI/Abdominal exam: PRESENT: normal bowel sounds, soft Rectal exam: PRESENT: deferred Neurological exam: PRESENT: alert, awake, oriented to person, oriented to place, oriented to time, oriented to situation, CN II-XII grossly intact Psychiatric exam: PRESENT: appropriate affect, normal mood Skin exam: PRESENT: dry, intact, warm. ABSENT: cyanosis, rash Results Laboratory Results: 04/04/19 14:00 04/04/19 14:00 04/04/19 04/04/19 14:00 14:00 WBC 5.9 RBC 3.55 L Hgb 11.0 L Hct 32.9 L MCV 93 MCH 30.9 MCHC 33.3 RDW 13.4 Plt Count 319 Seg Neutrophils % 61.7 Sodium 135.3 L Potassium 3.8 Chloride 98 Carbon Dioxide 26 Anion Gap 11 BUN 17 Creatinine 0.88 Est GFR ( Amer) > 60 Glucose 114 H Calcium 9.2 Total Bilirubin 0.5 AST 19 Alkaline Phosphatase 59 Total Protein 6.8 Albumin 4.0 04/02/19 15:15 Clean Catch Midstream Urine Culture - Final Mixed Urogenital Stacia Impressions: Renal Ultrasound 04/03/19 00:00 IMPRESSION: Left nephrolithiasis. No hydronephrosis bilaterally. Qualifiers - * PATIENT BEING DISCHARGED WITH ANY OF THE FOLLOWING DIAGNOSIS: No VTE patient discharged on overlapping Therapy?: No Reason(s) for not prescribing Overlap Therapy:: Not indicated Stroke Pt being discharged on Anti-thrombolytic therapy?: No Reason(s) for not prescribing Anti-thrombolytic therapy:: Not indicated Stroke Pt being discharged on Anti-coagulation therapy?: No Reason(s) for not prescribing Anti-coagulation therapy:: Not indicated Stroke Pt being discharged on Statins?: No Reason(s) for not prescribing Statins therapy:: Not indicated [place] Pt being discharged on Aspirin therapy?: No Reason(s) for not prescribing Aspirin therapy:: Not indicated WA Pt being discharged on Statins?: No Reason(s) for not prescribing Statin therapy:: Not indicated [place] Pt discharged ACEI/ARBS?: No Reason(s) for not prescribing ACEI/ARBS:: Not indicated Acute Heart Failure - Is this a Heart Failure Patient?: No Follow-up Appointment scheduled within 7 days?: Yes
== END 2019-04-04 16:25 | disposition home or self-care (01) | DRG 644 ==
LOC: 3N 12:47
PROVIDERS: ADMIT Internal Medicine; ATTEND Internal Medicine
DX: E22.2 Syndrome of inappropriate secretion of antidiuretic hormone (principal); N17.9 Acute kidney failure, unspecified; D64.9 Anemia, unspecified; I10 Essential (primary) hypertension; J45.909 Unspecified asthma, uncomplicated; E89.0 Postprocedural hypothyroidism; F43.10 Post-traumatic stress disorder, unspecified; F25.9 Schizoaffective disorder, unspecified; Z79.899 Other long term (current) drug therapy; Z88.8 Allergy status to other drugs, medicaments and biological substances
CPT/HCPCS: 36415; 76770; 80048; 80053; 80076; 81001; 82607; 82728; 82746; 83540; 83550; 83930; 83935; 84300; 85025; 85027; 85045; 87086; J3490; J7030

== ENCOUNTER 2019-08-04 13:18 | Emergency (ER) | payer MEDICARE, MEDICAID ==
--- NOTE | 2019-08-04 15:22 | ER Document Report ---
ED Medical Screen (RME) - General Chief Complaint: Dizziness Stated Complaint: BLOOD PRESSURE Time Seen by Provider: 08/04/19 15:19 Primary Care Provider: FRANDY REN MD [Primary Care Provider] - Follow up as needed Mode of Arrival: Ambulatory Information source: Patient Notes: 74-year-old female presents emergency department with reports that her blood pressure was really high when she took it at home. She reports dizziness for a week. No other complaints such as fever vomiting diarrhea. Reports recently had her blood pressure medication changed by Dr. Zheng. She was supposed to follow- up with him but wanted to see down for [place]. I have greeted and performed a rapid initial assessment of this patient. A comprehensive ED assessment and evaluation of the patient, analysis of test results and completion of the medical decision making process will be conducted by additional ED providers. TRAVEL OUTSIDE OF THE [place] IN LAST 30 DAYS: No - Related Data Allergies/Adverse Reactions: quetiapine fumarate [From [employer]] Allergy (Unknown, Verified 08/04/19 15:10) pt unsure Past Medical History - Past Medical History Cardiac Medical History: Reports: Hx Hypertension Pulmonary Medical History: Reports: Hx Asthma Neurological Medical History: Reports: Hx Cerebrovascular Accident - 2008, no residual effects, Hx Seizures - (only once) February 2016 (low sodium/potassium). Denies: Hx Parkinson's Disease Endocrine Medical History: Reports: Hx Hypothyroidism - Left Thyroidectomy. Denies: Hx Graves' Disease Renal/ Medical History: Denies: Hx Kidney Stones, Hx Ovarian Cysts, Hx Peritoneal Dialysis, Hx Pelvic Inflammatory Disease GI Medical History: Denies: Hx Irritable Bowel, Hx Liver Failure, Hx Pancreatitis, Hx Ulcer Musculoskeltal Medical History: Reports Hx Arthritis, Denies Hx Multiple Sclerosis, Denies Hx Muscular Dystrophy, Denies Hx Systemic Lupus Erythematosus Psychiatric Medical History: Reports: Hx Depression, Hx Post Traumatic Stress Disorder, Hx Schizoaffective Disorder, Hx Schizophrenia Traumatic Medical History: Denies: Hx Fractures Past Surgical History: Reports: Hx Cholecystectomy, Hx Hysterectomy. Denies: Hx Bowel Surgery, Hx Open Heart Surgery Physical Exam - Vital signs Vitals: Temp Pulse Resp BP Pulse Ox 98.1 F 80 16 137/73 H 95 08/04/19 13:45 08/04/19 13:45 08/04/19 13:45 08/04/19 13:45 08/04/19 13:45 Course - Vital Signs Vital signs: Temp Pulse Resp BP Pulse Ox 98.1 F 80 16 137/73 H 95 08/04/19 13:45 08/04/19 13:45 08/04/19 13:45 08/04/19 13:45 08/04/19 13:45 Doctor's Discharge - Discharge Referrals: FRANDY REN MD [Primary Care Provider] - Follow up as needed
--- NOTE | 2019-08-04 15:58 | RADIOLOGY REPORT (SQ) ---
EXAM DESCRIPTION: CHEST 2 VIEWS COMPLETED DATE/TIME: 08/04/2019 3:48 pm REASON FOR STUDY: dizziness COMPARISON: 05/24/2016. NUMBER OF VIEWS: Two view. TECHNIQUE: Frontal and lateral radiographic views of the chest acquired. LIMITATIONS: None. FINDINGS: LUNGS AND PLEURA: No opacities, masses or pneumothorax. No pleural effusion. MEDIASTINUM AND HILAR STRUCTURES: No masses. No contour abnormalities. HEART AND VASCULAR STRUCTURES: Heart enlarged without failure. Aorta normal for age. BONES: No acute findings. Chronic changes in the spine and shoulders. HARDWARE: Clips in the upper abdomen and in the base of the neck. OTHER: No other significant finding. IMPRESSION: STABLE CARDIOMEGALY. NO ACUTE FINDINGS. TECHNICAL DOCUMENTATION: JOB ID: [id number] [employer]- All Rights Reserved Reading location - IP/workstation name: [email or web address]
[2019-08-04 16:03] LABS: ABSOLUTE LYMPHOCYTES (AUTO) 2.1 10^3/uL (0.5-4.7); ABSOLUTE MONOCYTES (AUTO) 1.1 10^3/uL (0.1-1.4); BASOPHILS % (AUTO) 0.4 % (0-2); EOSINOPHILS % (AUTO) 0.5 % (0-6); HEMATOCRIT 32.5 % (36.0-47.0); HEMOGLOBIN 10.9 g/dL (12.0-15.5); MEAN CORPUSCULAR HEMOGLOBIN 31.1 pg (27.0-33.4); MEAN CORPUSCULAR HGB CONC 33.4 g/dL (32.0-36.0); MEAN CORPUSCULAR VOLUME 93 fl (80-97); MONOCYTES % (AUTO) 10.8 % (3-13); PLATELET COUNT 283 10^3/uL (150-450); RED BLOOD COUNT 3.49 10^6/uL (3.72-5.28); RED CELL DISTRIBUTION WIDTH 13.5 % (11.5-14.0); SEGMENTED NEUTROPHILS % (AUTO) 68.3 % (42-78); TOTAL CELLS COUNTED % (AUTO) 100 %; WHITE BLOOD COUNT 10.3 10^3/uL (4.0-10.5)
[2019-08-04 16:17] LABS: ALBUMIN 4.1 g/dL (3.5-5.0); ALKALINE PHOSPHATASE 71 U/L (38-126); ANION GAP 13 (5-19); ASPARTATE AMINO TRANSFERASE 22 U/L (14-36); BILIRUBIN,DIRECT 0.1 mg/dL (0.0-0.4); BILIRUBIN,TOTAL 0.6 mg/dL (0.2-1.3); BLOOD UREA NITROGEN 23 mg/dL (7-20); CALCIUM 9.2 mg/dL (8.4-10.2); CARBON DIOXIDE 27 mmol/L (22-30); CHLORIDE 93 mmol/L (98-107); GLUCOSE 76 mg/dL (75-110); POTASSIUM 3.8 mmol/L (3.6-5.0); TOTAL PROTEIN 7.4 g/dL (6.3-8.2)
--- NOTE | 2019-08-04 18:45 | EKG REPORT ---
SEVERITY:- ABNORMAL ECG - SINUS RHYTHM LEFT VENTRICULAR HYPERTROPHY : Confirmed by: Davie Zarate MD 04-Aug-2019 18:43:58
--- NOTE | 2019-08-04 20:31 | ER Document Report ---
ED General - General Chief Complaint: Dizziness Stated Complaint: BLOOD PRESSURE Time Seen by Provider: 08/04/19 15:19 Primary Care Provider: FRANDY REN MD [Primary Care Provider] - Follow up as needed Mode of Arrival: Ambulatory TRAVEL OUTSIDE OF THE [place] IN LAST 30 DAYS: No - Related Data Allergies/Adverse Reactions: quetiapine fumarate [From Seroquel] Allergy (Unknown, Verified 08/04/19 15:10) pt unsure Past Medical History - General Information source: Patient - Social History Smoking Status: Never Smoker Family History: Reviewed & Not Pertinent Patient has suicidal ideation: No Patient has homicidal ideation: No - Past Medical History Cardiac Medical History: Reports: Hx Hypertension Pulmonary Medical History: Reports: Hx Asthma Neurological Medical History: Reports: Hx Cerebrovascular Accident - 2008, no residual effects, Hx Seizures - (only once) February 2016 (low sodium/potassium). Denies: Hx Parkinson's Disease Endocrine Medical History: Reports: Hx Hypothyroidism - Left Thyroidectomy. Denies: Hx Graves' Disease Renal/ Medical History: Denies: Hx Kidney Stones, Hx Ovarian Cysts, Hx Peritoneal Dialysis, Hx Pelvic Inflammatory Disease GI Medical History: Denies: Hx Irritable Bowel, Hx Liver Failure, Hx Pancreatitis, Hx Ulcer Musculoskeletal Medical History: Reports Hx Arthritis, Denies Hx Multiple Sclerosis, Denies Hx Muscular Dystrophy, Denies Hx Systemic Lupus Erythematosus Psychiatric Medical History: Reports: Hx Depression, Hx Post Traumatic Stress Disorder, Hx Schizoaffective Disorder, Hx Schizophrenia Traumatic Medical History: Denies: Hx Fractures Past Surgical History: Reports: Hx Cholecystectomy, Hx Hysterectomy. Denies: Hx Bowel Surgery, Hx Open Heart Surgery - Immunizations Hx Pneumococcal Vaccination: 05/28/11 Physical Exam - Vital signs Vitals: Temp Pulse Resp BP Pulse Ox 98.1 F 80 16 137/73 H 95 08/04/19 13:45 08/04/19 13:45 08/04/19 13:45 08/04/19 13:45 08/04/19 13:45 - Notes Notes: Patient presents emerge department indicating blood pressure been elevated for the past week. Says the top numbers been around 170 and the bottom numbers been slightly above 100. Compliant with her medications. She saw her family doctor last week and increase her medications. Follow-up before but missed the appointment with any headaches abnormal vision chest pain shortness of breath nausea vomiting or abdominal pain numbness weakness extremities or lower extremity edema. Past medical history significant for hypertension CVA with no residual weakness hypothyroidism and COPD. Social history does not smoke or drink at all Review of systems pertinent positives and negatives in HPI otherwise all the systems were reviewed and acutely negative PHYSICIAN EXAM -vital signs are noted triage note and note from triage reviewed GENERAL: Well-appearing, well-nourished and in __acute distress____ HEAD: Atraumatic, normocephalic. EYES: Pupils equal round and reactive to light, extraocular movements intact, sclera anicteric, conjunctiva are normal. ENT: nares patent, oropharynx clear without exudates. Moist mucous membranes. NECK: supple without lymphadenopathy LUNGS: Breath sounds clear to auscultation bilaterally and equal. No wheezes rales or rhonchi. HEART: Regular rate and rhythm without murmurs ABDOMEN: Soft, nontender, normoactive bowel sounds. EXTREMITIES: No deformity, no edema. NEUROLOGICAL: Alert and oriented x4. Cranial nerves he has symmetrical smile facies and shoulder shrug. His motor strength is 5/5 bilaterally in the upper and lower extremities. Toes downgoing. Sensation is intact to light touch is a negative Romberg and normal gait PSYCH: Normal mood, normal affect. SKIN: Warm, Dry, normal turgor, no rashes or lesions noted. BACK-nontender in the midline Course - Re-evaluation Re-evalutation: 08/04/19 20:42 ED patient is remained stable repeat blood pressure [id number] Medical decision-making patient presents with elevated blood pressure reading. She is asymptomatic blood pressure is fine looks well can be discharged home I discussed results of laboratory findings and diagnostic test with patient/family. The treatment plan was explained and I reviewed the discharge instructions with them. Questions were answered. The patient/family verbalizes understanding - Vital Signs Vital signs: Temp Pulse Resp BP Pulse Ox 98.1 F 80 16 137/73 H 95 08/04/19 13:45 08/04/19 13:45 08/04/19 13:45 08/04/19 13:45 08/04/19 13:45 - Laboratory Result Diagrams: 08/04/19 15:29 08/04/19 15:29 Laboratory results interpreted by me: 08/04/19 08/04/19 15:29 15:29 RBC 3.49 L Hgb 10.9 L Hct 32.5 L Sodium 133.2 L Chloride 93 L BUN 23 H Est GFR ( Amer) 51 L Est GFR (MDRD) Non-Af 42 L - Diagnostic Test Radiology reviewed: Reports reviewed - EKG Interpretation by Me Additional EKG results interpreted by me: 08/04/19 20:43 EKG read by me shows a normal sinus rhythm there is LVH with strain is unchanged from previous axis Discharge - Discharge Clinical Impression: Hypertension Condition: Good Disposition: HOME, SELF-CARE Additional Instructions: Please review the discharge instructions, they will tell you about your disea se/injury and what you need to return to the ED for Return to the ED if you feel worse or can follow-up with your family doctor Check your blood pressure twice a week and record the numbers. Return if you develop any chest pain shortness of breath severe headaches Follow-up with your family doctor in 1 to 2 weeks Forms: Elevated Blood Pressure Referrals: FRANDY REN MD [Primary Care Provider] - Follow up as needed
[2019-08-04 21:59] VITALS: BP 142/70
== END 2019-08-04 21:20 | disposition home or self-care (01) ==
LOC: ER 13:18
DX: I11.9 Hypertensive heart disease without heart failure (principal); J44.9 Chronic obstructive pulmonary disease, unspecified; Z86.73 Personal history of transient ischemic attack (TIA), and cerebral infarction without residual deficits; Z88.8 Allergy status to other drugs, medicaments and biological substances
CPT/HCPCS: 36415; 71046; 80053; 84484; 85025; 93005; 93010; 99284

== ENCOUNTER → 2019-09-23 | Outpatient (CLI) | payer MEDICARE, MEDICAID ==
--- NOTE | 2019-09-23 17:16 | RADIOLOGY REPORT (SQ) ---
EXAM DESCRIPTION: CHEST PA/LATERAL COMPLETED DATE/TIME: 09/23/2019 4:49 pm REASON FOR STUDY: COUGH COMPARISON: 08/04/2019 EXAM PARAMETERS: NUMBER OF VIEWS: two views TECHNIQUE: Digital Frontal and Lateral radiographic views of the chest acquired. RADIATION DOSE: NA LIMITATIONS: none FINDINGS: LUNGS AND PLEURA: No opacities, masses or pneumothorax. No pleural effusion. MEDIASTINUM AND HILAR STRUCTURES: No masses or contour abnormalities. HEART AND VASCULAR STRUCTURES: Cardiomegaly. No pulmonary edema. BONES: No acute findings. HARDWARE: None in the chest. OTHER: No other significant finding. IMPRESSION: Cardiomegaly without pulmonary edema. TECHNICAL DOCUMENTATION: JOB ID: [id number] 2010 [employer]- All Rights Reserved Reading location - IP/workstation name: [email or web address]
--- NOTE | 2019-09-23 17:18 | RADIOLOGY REPORT (SQ) ---
EXAM DESCRIPTION: PARANASAL SINUSES COMPLETED DATE/TIME: 09/23/2019 4:49 pm REASON FOR STUDY: COUGH R05 COUGH COMPARISON: 09/23/2013 NUMBER OF VIEWS: Five views TECHNIQUE: Images of the paranasal sinuses acquired. LIMITATIONS: None. FINDINGS: ORBITS: No fracture. No foreign body. SINUSES: No mucosal thickening. No air fluid levels. FACIAL BONES: No fracture. OTHER: No other significant finding. IMPRESSION: NO FOREIGN BODY OR FRACTURE. NO PLAIN RADIOGRAPHIC EVIDENCE FOR SINUS DISEASE. TECHNICAL DOCUMENTATION: JOB ID: [id number] 2010 [employer]- All Rights Reserved Reading location - IP/workstation name: [email or web address]
== END ==
LOC: OD 15:29
PROVIDERS: ATTEND Internal Medicine
DX: R05 Cough (principal)
CPT/HCPCS: 70220; 71046

== ENCOUNTER 2019-12-19 19:03 | Emergency (ER) | payer MEDICARE, MEDICAID ==
--- NOTE | 2019-12-19 22:32 | RADIOLOGY REPORT (SQ) ---
US LOWER EXTREMITY VEINS EXAM DATE: 12/19/2019 9:19 PM CDT HISTORY: Leg pain and swelling. COMPARISON: None. TECHNIQUE: Carroll-scale, color Doppler and spectral Doppler images of the bilateral lower extremity veins were obtained. FINDINGS: RIGHT: The right common femoral, superficial femoral and popliteal veins are patent and compressible. Normal augmentation and color Doppler blood flow in the aforementioned veins. The visualized calf veins are also patent. Diffuse subcutaneous edema is present. LEFT: The left common femoral, superficial femoral and popliteal veins are patent and compressible. Normal augmentation and color Doppler blood flow in the aforementioned veins. The visualized calf veins are also patent. Diffuse subcutaneous edema is present. IMPRESSION: No DVT in the bilateral lower extremities.
--- NOTE | 2019-12-19 22:39 | ER Document Report ---
ED General - General Chief Complaint: Leg Swelling Stated Complaint: SWOLLEN LEGS Time Seen by Provider: 12/19/19 22:14 Primary Care Provider: FRANDY REN MD [Primary Care Provider] - Follow up as needed TRAVEL OUTSIDE OF THE [place] IN LAST 30 DAYS: No - HPI Notes: Patient is a 74-year-old female that presents to the emergency department for evaluation of leg swelling. Is been left greater than right. She states this been going on for approximately a month. She denies any pain. She saw her primary care provider for yesterday. She states he did some blood work, then called her today, told her to go to the emergency department for evaluation of a possible blood clot. She has no history of blood clots. No family history of blood clots. She is not had any medication changes. She denies any chest pain or shortness of breath. She has had no paroxysmal nocturnal dyspnea. She has had bilateral knee replacements, but no recent surgeries or injuries to the a akila. - Related Data Allergies/Adverse Reactions: quetiapine fumarate [From Seroquel] Allergy (Unknown, Verified 08/04/19 15:10) pt unsure Home Medications: has list Past Medical History - General Information source: Patient - Social History Smoking Status: Never Smoker Chew tobacco use (# tins/day): No Frequency of alcohol use: None Drug Abuse: None Family History: Reviewed & Not Pertinent Patient has homicidal ideation: No - Past Medical History Cardiac Medical History: Reports: Hx Hypertension Pulmonary Medical History: Reports: Hx Asthma Neurological Medical History: Reports: Hx Cerebrovascular Accident - 2008, no residual effects, Hx Seizures - (only once) February 2016 (low sodium/potassium). Denies: Hx Parkinson's Disease Endocrine Medical History: Reports: Hx Hypothyroidism - Left Thyroidectomy. Denies: Hx Graves' Disease Renal/ Medical History: Denies: Hx Kidney Stones, Hx Ovarian Cysts, Hx Peritoneal Dialysis, Hx Pelvic Inflammatory Disease GI Medical History: Denies: Hx Irritable Bowel, Hx Liver Failure, Hx Pancreatitis, Hx Ulcer Musculoskeletal Medical History: Reports Hx Arthritis, Denies Hx Multiple Sclerosis, Denies Hx Muscular Dystrophy, Denies Hx Systemic Lupus Erythematosus Psychiatric Medical History: Reports: Hx Depression, Hx Post Traumatic Stress Disorder, Hx Schizoaffective Disorder, Hx Schizophrenia Traumatic Medical History: Denies: Hx Fractures Past Surgical History: Reports: Hx Cholecystectomy, Hx Hysterectomy. Denies: Hx Bowel Surgery, Hx Open Heart Surgery - Immunizations Hx Pneumococcal Vaccination: 05/28/11 Review of Systems - Review of Systems Musculoskeletal: See HPI -: Yes All other systems reviewed and negative Physical Exam - Vital signs Vitals: Temp Pulse Resp BP Pulse Ox 98.0 F 68 16 123/68 100 12/19/19 19:16 12/19/19 19:16 12/19/19 19:16 12/19/19 19:16 12/19/19 19:16 - Notes Notes: Vital signs reviewed, please refer to chart. Head is normocephalic, atraumatic. Pupils equal round, reactive to light. Neck is supple without meningismus. Heart is regular rate and rhythm. Lungs are clear to auscultation bilaterally. Abdomen is soft, nontender, normoactive bowel sounds throughout. Extremities without cyanosis, clubbing. Posterior calves are nontender. Patient with 1+ pitting edema to the left lower extremity, pretibial. Trace pitting edema to the right lower extremity. No posterior calf tenderness. Negative Homans, negative Arun signs. Peripheral pulses are equal. Skin is warm and dry. Patient is awake, alert, neurological exam is nonfocal. Course - Re-evaluation Re-evalutation: 12/19/19 22:37 Patient presents to the emergency department for evaluation. On exam she has left lower extremity swelling, but she states that both extremities are swollen more than normal. Bilateral Doppler exam was performed and found to be negative. Patient has normal vital signs. She is 100% on room air. Her lungs are clear. I do not have a strong suspicion for CHF. She is told to increase her water intake, decrease her sodium intake, consider compression stockings, and follow-up with her primary care doctor next week. She is amenable to this plan. She is to return to the emergency department for worsening or new concerning symptoms of any sort. - Vital Signs Vital signs: Temp Pulse Resp BP Pulse Ox 98.6 F 68 16 123/68 100 12/19/19 19:43 12/19/19 19:16 12/19/19 19:16 12/19/19 19:16 12/19/19 19:16 - Diagnostic Test Radiology reviewed: Reports reviewed Radiology results interpreted by me: 12/19/19 22:37 Venous Doppler Study 12/19/19 21:19 IMPRESSION: No DVT in the bilateral lower extremities. Discharge - Discharge Clinical Impression: Lower extremity edema Condition: Stable Disposition: HOME, SELF-CARE Instructions: Dependent Edema ([facility]) Additional Instructions: Keep legs elevated. Increase his fluid intake, decrease sodium. Consider compression stockings. Follow-up with your doctor next week. If you develop increased welling, chest pain, shortness of breath, or any other new or concerning symptoms, please return immediately to the emergency department for reevaluation. Referrals: FRANDY REN MD [Primary Care Provider] - Follow up as needed
[2019-12-19 23:03] VITALS: BP 162/87
== END 2019-12-19 23:03 | disposition home or self-care (01) ==
LOC: ER 19:03
DX: R60.9 Edema, unspecified (principal); I10 Essential (primary) hypertension; Z86.73 Personal history of transient ischemic attack (TIA), and cerebral infarction without residual deficits; Z90.49 Acquired absence of other specified parts of digestive tract; Z90.710 Acquired absence of both cervix and uterus
CPT/HCPCS: 93970; 99283

== ENCOUNTER → 2020-02-03 | Outpatient (CLI) | payer MEDICARE, MEDICAID ==
--- NOTE | 2020-02-03 15:20 | WOMENS IMAGING REPORT ---
EXAM DESCRIPTION: 3D SCREENING MAMMO BILAT IMAGES COMPLETED DATE/TIME: 02/03/2020 2:54 pm REASON FOR STUDY: Z12.31 ENCOUNTER FOR SCREENING MAMMOGRAM FOR MALIGNANT NEOPLASM OF BREAST Z12.31 ENCNTR SCREEN MAMMOGRAM FOR MALIGNANT NEOPLASM OF [place] COMPARISON: [id number] EXAM PARAMETERS: Standard craniocaudal and mediolateral oblique views of each breast recorded using digital acquisition and breast tomosynthesis. Read with the assistance of CAD. .[facility] - [employer] Machine Operator Version 9.2 LIMITATIONS: None. FINDINGS: Findings present which are benign by mammographic criteria. No suspicious masses, calcific ations or architectural distortion. Pertinent benign findings: Stable calcifications. Benign mammographic findings may include one or more of the following: Smooth masses, popcorn/rim/coa rse calcifications, asymmetries, post-procedure changes, and lesions with long-standing stability. IMPRESSION: BENIGN MAMMOGRAPHIC FINDINGS. BIRADS 2 BREAST DENSITY: b. There are scattered areas of fibroglandular density. BIRAD: ASSESSMENT: 2 BENIGN FINDING(S) RECOMMENDATION: ROUTINE SCREENING COMMENT: The patient has been notified of the results by letter per SA requirements. Additional no tification policies are in place for contacting patient with suspicious or incomplete findings. Quality ID #[id number]: The [employer] recommends an annual screening mammogram for women aged 40 years or over. This facility utilizes a reminder system to ensure that all patients receive reminder letters, and/or direct phone calls for appointments. This includes reminders for routine scr eening mammograms, diagnostic mammograms, or other Breast Imaging Interventions when appropriate. Th is patient will be placed in the appropriate reminder system. TECHNICAL DOCUMENTATION: FINDING NUMBER: (1) ASSESSMENT: (1) JOB ID: [id number] 2010 [employer]- All Rights Reserved Reading location - IP/workstation name: [facility]-[email or web address]
== END ==
LOC: WI 14:35
PROVIDERS: ATTEND Internal Medicine
DX: Z12.31 Encounter for screening mammogram for malignant neoplasm of breast (principal)
CPT/HCPCS: 77063; 77067

== ENCOUNTER → 2020-02-26 | Outpatient (CLI) | payer MEDICARE, MEDICAID ==
[2020-02-26 10:18] LABS: ABSOLUTE EOSINOPHILS # (AUTO) 0.1 10^3/uL (0.0-0.6); ABSOLUTE LYMPHOCYTES (AUTO) 2.3 10^3/uL (0.5-4.7); ABSOLUTE MONOCYTES (AUTO) 0.7 10^3/uL (0.1-1.4); ABSOLUTE NEUT (AUTO) 3.5 10^3/uL (1.7-8.2); BASOPHILS % (AUTO) 0.4 % (0-2); EOSINOPHILS % (AUTO) 1.7 % (0-6); HEMATOCRIT 32.6 % (36.0-47.0); HEMOGLOBIN 10.9 g/dL (12.0-15.5); LYMPHOCYTES % (AUTO) 34.9 % (13-45); MEAN CORPUSCULAR HEMOGLOBIN 31.3 pg (27.0-33.4); MEAN CORPUSCULAR HGB CONC 33.5 g/dL (32.0-36.0); MEAN CORPUSCULAR VOLUME 94 fl (80-97); MONOCYTES % (AUTO) 9.8 % (3-13); PLATELET COUNT 330 10^3/uL (150-450); RED BLOOD COUNT 3.48 10^6/uL (3.72-5.28); RED CELL DISTRIBUTION WIDTH 13.6 % (11.5-14.0); SEGMENTED NEUTROPHILS % (AUTO) 53.2 % (42-78); TOTAL CELLS COUNTED % (AUTO) 100 %; WHITE BLOOD COUNT 6.7 10^3/uL (4.0-10.5)
[2020-02-26 10:38] LABS: ALBUMIN 4.2 g/dL (3.5-5.0); ALKALINE PHOSPHATASE 91 U/L (38-126); ANION GAP 5 (5-19); ASPARTATE AMINO TRANSFERASE 20 U/L (14-36); BILIRUBIN,TOTAL 0.7 mg/dL (0.2-1.3); BLOOD UREA NITROGEN 23 mg/dL (7-20); CALCIUM 9.1 mg/dL (8.4-10.2); CARBON DIOXIDE 28 mmol/L (22-30); CHLORIDE 100 mmol/L (98-107); CHOLESTEROL 197.08 mg/dL (0-200); GLUCOSE 105 mg/dL (75-110); POTASSIUM 4.5 mmol/L (3.6-5.0); TOTAL PROTEIN 7.5 g/dL (6.3-8.2); TRIGLYCERIDES 50 mg/dL (<150)
[2020-02-26 10:48] LABS: DIRECT LDL 90 mg/dL (<100)
== END ==
LOC: OD 09:36
PROVIDERS: ATTEND Physician Assistant
DX: F20.0 Paranoid schizophrenia (principal); Z79.899 Other long term (current) drug therapy
CPT/HCPCS: 36415; 80053; 80061; 82652; 83036; 84443; 85025

== ENCOUNTER 2020-04-29 18:43 | Inpatient (IN) | payer MEDICARE, MEDICAID ==
[2020-04-29 19:51] LABS: ABSOLUTE LYMPHOCYTES (AUTO) 1.2 10^3/uL (0.5-4.7); ABSOLUTE MONOCYTES (AUTO) 1.7 10^3/uL (0.1-1.4); ABSOLUTE NEUT (AUTO) 10.3 10^3/uL (1.7-8.2); BASOPHILS % (AUTO) 0.2 % (0-2); HEMATOCRIT 35.8 % (36.0-47.0); HEMOGLOBIN 12.3 g/dL (12.0-15.5); LYMPHOCYTES % (AUTO) 9.1 % (13-45); MEAN CORPUSCULAR HEMOGLOBIN 30.9 pg (27.0-33.4); MEAN CORPUSCULAR HGB CONC 34.3 g/dL (32.0-36.0); MEAN CORPUSCULAR VOLUME 90 fl (80-97); MONOCYTES % (AUTO) 12.7 % (3-13); PLATELET COUNT 340 10^3/uL (150-450); RED BLOOD COUNT 3.97 10^6/uL (3.72-5.28); RED CELL DISTRIBUTION WIDTH 12.9 % (11.5-14.0); TOTAL CELLS COUNTED % (AUTO) 100 %; WHITE BLOOD COUNT 13.2 10^3/uL (4.0-10.5)
[2020-04-29 19:55] LABS: ALBUMIN 4.3 g/dL (3.5-5.0); ALKALINE PHOSPHATASE 86 U/L (38-126); ANION GAP 10 (5-19); ASPARTATE AMINO TRANSFERASE 74 U/L (14-36); BILIRUBIN,DIRECT 0.6 mg/dL (0.0-0.4); BILIRUBIN,TOTAL 1.6 mg/dL (0.2-1.3); BLOOD UREA NITROGEN 17 mg/dL (7-20); CALCIUM 9.5 mg/dL (8.4-10.2); CARBON DIOXIDE 29 mmol/L (22-30); CHLORIDE 84 mmol/L (98-107); GLUCOSE 102 mg/dL (75-110); POTASSIUM 3.4 mmol/L (3.6-5.0); TOTAL PROTEIN 7.7 g/dL (6.3-8.2)
--- NOTE | 2020-04-29 20:26 | ER Document Report ---
ED Fall - General Chief Complaint: Fall Stated Complaint: WEAKNESS Time Seen by Provider: 04/29/20 20:13 Notes: Patient is a 74 female that comes to the emergency department by EMS for chief complaint of a fall. Patient states she got up to go to the bathroom, lost her balance, and fell first against the wall and then slid to the ground. She states she was too weak to get up off the ground and called EMS. She states she lives by herself. She states her left shoulder hurts slightly from trying to get herself up but she denies pain from landing on her shoulder. She denies head injury, focal numbness or weakness, back pain, hip pain, incontinence, passing out. She denies chest pain, shortness of breath, fever, abdominal pain, vomiting, diarrhea. Patient reportedly spent several hours on the floor. 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 Patient denies any complaints at this time. TRAVEL OUTSIDE OF THE [place] IN LAST 30 DAYS: No - Related data Allergies/Adverse Reactions: quetiapine fumarate [From Seroquel] Allergy (Unknown, Verified 08/04/19 15:10) pt unsure Past Medical History - General Information source: Patient - Social History Smoking Status: Unknown if Ever Smoked Lives with: Alone Family History: Reviewed & Not Pertinent - Past Medical History Cardiac Medical History: Reports: Hx Hypertension Pulmonary Medical History: Reports: Hx Asthma Neurological Medical History: Reports: Hx Cerebrovascular Accident - 2008, no residual effects, Hx Seizures - (only once) February 2016 (low sodium/potassium). Denies: Hx Parkinson's Disease Endocrine Medical History: Reports: Hx Hypothyroidism - Left Thyroidectomy. Denies: Hx Graves' Disease Renal/ Medical History: Denies: Hx Kidney Stones, Hx Ovarian Cysts, Hx Peritoneal Dialysis, Hx Pelvic Inflammatory Disease GI Medical History: Denies: Hx Irritable Bowel, Hx Liver Failure, Hx Pancreatitis, Hx Ulcer Musculoskeletal Medical History: Reports Hx Arthritis, Denies Hx Multiple Sclerosis, Denies Hx Muscular Dystrophy, Denies Hx Systemic Lupus Erythematosus Psychiatric Medical History: Reports: Hx Depression, Hx Post Traumatic Stress Disorder, Hx Schizoaffective Disorder, Hx Schizophrenia Traumatic Medical History: Denies: Hx Fractures Past Surgical History: Reports: Hx Cholecystectomy, Hx Hysterectomy. Denies: Hx Bowel Surgery, Hx Open Heart Surgery - Immunizations Hx Diphtheria, Pertussis, Tetanus Vaccination: Yes Hx Pneumococcal Vaccination: 05/28/11 Review of Systems - Review of Systems Constitutional: See HPI EENT: No symptoms reported Cardiovascular: No symptoms reported Respiratory: No symptoms reported Gastrointestinal: No symptoms reported Genitourinary: No symptoms reported Female Genitourinary: No symptoms reported Musculoskeletal: See HPI Skin: No symptoms reported Hematologic/Lymphatic: No symptoms reported Neurological/Psychological: No symptoms reported Physical Exam - Vital signs Vitals: Resp BP Pulse Ox 24 H 162/91 H 99 04/29/20 19:11 04/29/20 19:11 04/29/20 19:11 - Notes Notes: GENERAL: Alert, interacts well. No acute distress. HEAD: Normocephalic, atraumatic. EYES: Pupils equal, round, and reactive to light. Extraocular movements intact. ENT: Oral mucosa moist, tongue midline. Oropharynx unremarkable. Airway patent. NECK: Full range of motion. Supple. Trachea midline. No lymphadenopathy. LUNGS: Clear to auscultation bilaterally, no wheezes, rales, or rhonchi. No respiratory distress. Non-tender chest wall. HEART: Regular rate and rhythm. No murmur ABDOMEN: Soft, non-tender. Non-distended. Bowel sounds present in all 4 quadrants. GENITOURINARY: Deferred EXTREMITIES: There is some generalized tenderness over the left shoulder generally, but no signs of trauma or swelling. Patient moves the right arm poor ly, lower extremity unremarkable with full range of motion, normal distal neurovascular exam. BACK: no cervical, thoracic, lumbar midline tenderness. No saddle anesthesia, normal distal neurovascular exam. NEUROLOGICAL: Alert and oriented x3. Normal speech. Cranial nerves II through XII grossly intact. Strength 5/5 in all extremities. PSYCH: Normal affect, normal mood. SKIN: Warm, dry, normal turgor. No rashes or lesions noted. Course - Re-evaluation Re-evalutation: Patient is alert, oriented, vital signs unremarkable. However patient is noted to be weak, she cannot get off the bed by herself, she lives alone. CBC nonspec ific, chemistry shows hyponatremia (possibly from the hydrochlorothiazide?), she has had this before. Ck greater than 1500. Troponin unremarkable. EKG unremarkable. Chest x-ray unremarkable. Because of patient's hyponatremia and elevated creatinine kinase (with extended time on the floor) I am unable to hydrate patient quickly and she will require hospitalization for slower treatment. I discussed with patient, she states appreciation and agreement. Discussed with Dr. Dean, patient accepted to telemetry full admission. - Vital Signs Vital signs: Temp Pulse Resp BP Pulse Ox 98.1 F 75 16 152/78 H 100 04/30/20 03:19 04/30/20 03:19 04/30/20 03:19 04/30/20 03:19 04/30/20 03:19 - Laboratory Result Diagrams: 04/29/20 19:03 04/29/20 19:03 Laboratory results interpreted by me: 04/29/20 04/29/20 04/29/20 19:03 19:03 19:03 WBC 13.2 H Hct 35.8 L Lymph % (Auto) 9.1 L Absolute Neuts (auto) 10.3 H Absolute Monos (auto) 1.7 H Sodium 123.4 L Potassium 3.4 L Chloride 84 L Est GFR (MDRD) Non-Af 59 L Total Bilirubin 1.6 H Direct Bilirubin 0.6 H AST 74 H Creatine Kinase 1524 H Urine Protein Urine Ketones Urine Blood 04/29/20 20:20 WBC Hct Lymph % (Auto) Absolute Neuts (auto) Absolute Monos (auto) Sodium Potassium Chloride Est GFR (MDRD) Non-Af Total Bilirubin Direct Bilirubin AST Creatine Kinase Urine Protein 100 H Urine Ketones TRACE H Urine Blood MODERATE H - EKG Interpretation by Me Additional EKG results interpreted by me: EKG shows sinus rhythm, LVH, no T wave inversions or systemic changes in consecutive leads, artifact is present, QTC 480. Discharge - Discharge Clinical Impression: Hyponatremia, Weakness, Elevated CK Fall Qualifiers: Encounter type: initial encounter Qualified Code(s): W19.XXXA - Unspecified fall, initial encounter Condition: Stable Disposition: ADMITTED INPATIENT Admitting Provider: Jermaine Unit Admitted: Telemetry
[2020-04-29] MEDS ORDERED: NORMAL SALINE 1000 ML 1,000 ML IV PRN (20:28)
[2020-04-29 20:39] LABS: APPEARANCE,URINE CLEAR; BILIRUBIN,URINE NEGATIVE (NEGATIVE); COLOR,URINE STRAW; GLUCOSE, URINE NEGATIVE (NEGATIVE); KETONES,URINE TRACE mg/dL (NEGATIVE); LEUKOCYTE ESTERASE,URINE NEGATIVE (NEGATIVE); NITRITE,URINE NEGATIVE (NEGATIVE); PROTEIN,URINE 100 mg/dL (NEGATIVE); URINE SPECIFIC GRAVITY 1.004; UROBILINOGEN,URINE NEGATIVE mg/dL (<2.0)
--- NOTE | 2020-04-29 21:12 | RADIOLOGY REPORT (SQ) ---
CLINICAL INDICATION: fall, pain. . TECHNIQUE: 3 view(s) were obtained of the left shoulder. COMPARISON: None. FINDINGS: No acute displaced fracture is identified of the shoulder. Alignment appears anatomic. Severe glenohumeral osteoarthritis. Surrounding soft tissues are unremarkable. IMPRESSION: No evidence of acute bony injury to the shoulder. Severe osteoarthritis
--- NOTE | 2020-04-29 21:14 | RADIOLOGY REPORT (SQ) ---
CLINICAL INDICATION: generalized weakness. TECHNIQUE: A single portable AP view was obtained of the chest at 205 hours. COMPARISON: September 23, 2019. FINDINGS: The cardiomediastinal silhouette is enlarged but stable. The lungs are grossly clear. No evidence of effusion or pneumothorax. Arthropathy in the shoulders. Postsurgical change base of the neck. IMPRESSION: No evidence of active intrathoracic disease.
--- NOTE | 2020-04-29 22:03 | EKG REPORT ---
SEVERITY:- ABNORMAL ECG - SINUS RHYTHM LEFT VENTRICULAR HYPERTROPHY CONSIDER ANTERIOR INFARCT : Confirmed by: Martha Guillory MD 29-Apr-2020 22:01:43
[2020-04-29] MEDS ORDERED: ACETAMINOPHEN 325 MG TABLET PO PRN (22:17)
[2020-04-29] MEDS ORDERED: ENOXAPARIN SODIUM INJ 40 MG/0.4 ML DISP.SYRIN SUBCUT ONE (22:30)
[2020-04-29 22:40] LABS: INTERNATIONAL RATION (INR) 1.07; PROTHROMBIN TIME 14.1 SEC (11.4-15.4)
[2020-04-29 22:41] LABS: PARTIAL THROMBOPLASTIN TIME 28.3 SEC (23.5-35.8)
[2020-04-29 22:59] LABS: FREE T4 (FREE THYROXINE) 1.96 ng/dL (0.78-2.19)
[2020-04-29 23:13] LABS: THYROID STIMULATING HORMONE 0.53 uIU/mL (0.47-4.68)
[2020-04-29] MEDS: NORMAL SALINE 1000 ML 1,000 ML IV PRN (23:52)
[2020-04-30] MEDS: NORMAL SALINE 1000 ML 1,000 ML IV PRN (03:27)
[2020-04-30 06:43] LABS: ABSOLUTE BASOPHILS # (AUTO) 0.1 10^3/uL (0.0-0.2); ABSOLUTE LYMPHOCYTES (AUTO) 2.2 10^3/uL (0.5-4.7); ABSOLUTE MONOCYTES (AUTO) 1.8 10^3/uL (0.1-1.4); ABSOLUTE NEUT (AUTO) 7.5 10^3/uL (1.7-8.2); BASOPHILS % (AUTO) 0.5 % (0-2); EOSINOPHILS % (AUTO) 0.1 % (0-6); HEMATOCRIT 35.4 % (36.0-47.0); LYMPHOCYTES % (AUTO) 19.3 % (13-45); MEAN CORPUSCULAR HEMOGLOBIN 30.9 pg (27.0-33.4); MEAN CORPUSCULAR HGB CONC 33.9 g/dL (32.0-36.0); MEAN CORPUSCULAR VOLUME 91 fl (80-97); MONOCYTES % (AUTO) 15.3 % (3-13); PLATELET COUNT 330 10^3/uL (150-450); RED BLOOD COUNT 3.88 10^6/uL (3.72-5.28); RED CELL DISTRIBUTION WIDTH 13.3 % (11.5-14.0); SEGMENTED NEUTROPHILS % (AUTO) 64.8 % (42-78); TOTAL CELLS COUNTED % (AUTO) 100 %; WHITE BLOOD COUNT 11.6 10^3/uL (4.0-10.5)
[2020-04-30 07:08] LABS: ALBUMIN 4.2 g/dL (3.5-5.0); ALKALINE PHOSPHATASE 90 U/L (38-126); ANION GAP 12 (5-19); ASPARTATE AMINO TRANSFERASE 89 U/L (14-36); BILIRUBIN,DIRECT 0.5 mg/dL (0.0-0.4); BILIRUBIN,TOTAL 1.5 mg/dL (0.2-1.3); BLOOD UREA NITROGEN 18 mg/dL (7-20); CALCIUM 9.4 mg/dL (8.4-10.2); CARBON DIOXIDE 26 mmol/L (22-30); CHLORIDE 89 mmol/L (98-107); CHOLESTEROL 197.93 mg/dL (0-200); GLUCOSE 111 mg/dL (75-110); POTASSIUM 3.3 mmol/L (3.6-5.0); TOTAL PROTEIN 7.5 g/dL (6.3-8.2); TRIGLYCERIDES 57 mg/dL (<150)
[2020-04-30 07:15] LABS: CREATINE KINASE 2452 U/L (30-135)
[2020-04-30 07:19] LABS: DIRECT LDL 93 mg/dL (<100)
[2020-04-30] MEDS ORDERED: (PENDING PHARMACY ID) (Mirabegron [Myrbetriq] 50 MG) PO SCH (08:00)
[2020-04-30] MEDS ORDERED: LORAZEPAM 1 MG TABLET PO ONE ×2 (08:26→14:15)
[2020-04-30] MEDS ORDERED: POTASSIUM CHLORIDE 10 MEQ TABLET.ER PO ONE (08:30)
[2020-04-30] MEDS: METOPROLOL SUCCINATE 50 MG TAB.SR.24H PO SCH (09:02)
[2020-04-30] MEDS: LOSARTAN POTASSIUM 50 MG TABLET PO SCH (09:02)
[2020-04-30] MEDS: HYDROCHLOROTHIAZIDE 25 MG TABLET PO SCH (09:03)
[2020-04-30] MEDS: MONTELUKAST SODIUM 10 MG TABLET PO SCH (09:03)
[2020-04-30] MEDS: FERROUS SULFATE 325 MG TABLET PO SCH (09:16)
--- NOTE | 2020-04-30 10:25 | RADIOLOGY REPORT (SQ) ---
EXAM DESCRIPTION: MRI HEAD WITHOUT IMAGES COMPLETED DATE/TIME: 04/30/2020 10:04 am REASON FOR STUDY: suspect CVA COMPARISON: 02/27/2016 TECHNIQUE: Multiplanar imaging includes non-contrasted T1, T2, FLAIR, and Diffusion with ADC map seq uences. Images stored on PACS. LIMITATIONS: None. FINDINGS: ANATOMY: No anomalies. Normal vascular flow voids. Pituitary fossa normal. CSF SPACES: Normal in size and contour. No hemorrhage. CEREBRUM: In the medial left temporal lobe there is a 10 mm well-circumscribed lesion that is high si gnal on FLAIR sequence and similar to adjacent brain on T1. No restricted diffusion. No associated edema. High-signal intensity lesions scattered throughout the white matter on FLAIR imaging with dis tribution suggesting chronic micro-vascular ischemic change. Sulci and gyri normal in size and conto ur. No evidence of hemorrhage, mass or extraaxial fluid collection. POSTERIOR FOSSA: No signal alteration. No hemorrhage. No edema, masses or mass effect. Internal anmol tory canals, cerebello-pontine angles, mastoids normal. DIFFUSION: Negative for acute or sub-acute infarction. ORBITS: No masses. Globes normal. PARANASAL SINUSES: No fluid levels. Mucosa normal. OTHER: No other significant finding. IMPRESSION: 1. No evidence of acute infarct. 2. Left temporal lobe lesion possibly a small meningioma. If no contraindication, recommend patient have postcontrast study. Otherwise six-month follow-up. EVIDENCE OF ACUTE STROKE: NO. TECHNICAL DOCUMENTATION: JOB ID: [id number] 2010 [employer]- All Rights Reserved Reading location - IP/workstation name: [email or web address]
[2020-04-30] MEDS: NYSTATIN TOPICAL POWDER 15 GM TP SCH ×2 (11:57→18:29)
--- NOTE | 2020-04-30 16:06 | RADIOLOGY REPORT (SQ) ---
EXAM DESCRIPTION: MRI HEAD WITH IMAGES COMPLETED DATE/TIME: 04/30/2020 3:40 pm REASON FOR STUDY: ? meningioma COMPARISON: Noncontrast study earlier the same day. TECHNIQUE: Multiplanar imaging includes noncontrasted T1, T2, FLAIR, diffusion with ADC map and post gadolinium contrast T1 sequences. Images stored on PACS. CONTRAST TYPE AND DOSE: 20 mL Prohance. RENAL FUNCTION: Not indicated. ACR Type II contrast agent associated with few, if any, unconfounded cases of NSF LIMITATIONS: None. FINDINGS: Extra-axial lesion in the left anterior middle cranial fossa measures 14 x 10 x 15 mm AP b y transverse by craniocaudal diameter. Dural tail and homogeneous enhancement consistent with a shanda gn meningioma. IMPRESSION: Benign meningioma. EVIDENCE OF ACUTE STROKE: NO. TECHNICAL DOCUMENTATION: JOB ID: [id number] 2010 [employer]- All Rights Reserved Reading location - IP/workstation name: [email or web address]
[2020-04-30 17:01] LABS: URINE AMPHETAMINES SCREEN NEGATIVE; URINE BARBITURATES SCREEN NEGATIVE; URINE COCAINE SCREEN NEGATIVE; URINE MARIJUANA (THC) SCREEN NEGATIVE; URINE METHADONE SCREEN NEGATIVE; URINE PHENCYCLIDINE SCREEN NEGATIVE
[2020-04-30 17:13] LABS: URINE BENZODIAZEPINES SCREEN UNCONFIRMED POSITIVE
--- NOTE | 2020-04-30 20:44 | PDOC H&P ---
History of Present Illness Admission Date/PCP: 04/29/20 21:38 FRANDY REN MD History of Present Illness: GET OTTO is a 74 year old female,She came to the emergency room last night for evaluation of fall, the history was that she got up to go to the bathroom, lost her balance, fell forward against the wall and then slid to the ground. She stated that she was too weak to get up off the ground and called EMS. She lives by herself. She complain of left shoulder pain from trying to get a set up, she denies pain from landing on the shoulder. She denies any head injury, focal numbness or weakness no back pain no hip pain there was no urinary incontinence passing out there was no antecedent chest pain, shortness of breath, loss of consciousness, fever, vomiting or diarrhea before she fell. She was on the floor for several hours, in the emergency room she was evaluated she was found to have hyponatremia, Elevated serum CPK suggestive of rhabdomyolysis probably from the fall. She has a history of SIADH,Patient was seen on the floor today, and on evaluation the right arm was weak somewhat drooping suggestive of a stroke, MRI of the brain was obtained initially without contrast, it demonstrated in the medial left temporal lobe, a 10 mm well circumscribed lesion that is high signal on FLAIR sequence and similar to adjacent brain on TI, there was no restricted diffusion, there was no associated edema there was high signal intensity lesions scattered throughout the white matter on FLAIR imaging with distribution suggesting chronic microvascular ischemic change. sulci and gyri normal in size there was concern for a meningioma MRI with contrast recommended, this was obtained this demonstrated a left anterior middle cranial fossa lesion that measures 14 x 10 x 15 mm in the AP by transverse dimension consistent with benign meningioma . Past Medical History Cardiac Medical History: Reports: Hypertension Pulmonary Medical History: Reports: Asthma Neurological Medical History: Reports: Seizures - (only once) February 2016 (low sodium/potassium) Endocrine Medical History: Reports: Hypothyroidism - Left Thyroidectomy Musculoskeltal Medical History: Reports: Arthritis Psychiatric Medical History: Reports: Depression, Post Traumatic Stress Disorder, Schizoaffective Disorder Hematology: Reports: Anemia - hx blood transfusion Past Surgical History Past Surgical History: Reports: Cholecystectomy, Hysterectomy Social History Lives with: Alone Smoking Status: Unknown if Ever Smoked Frequency of Alcohol Use: None Hx Recreational Drug Use: No Drugs: None Hx Prescription Drug Abuse: No Family History Family History: Reviewed & Not Pertinent Parental Family History Reviewed: Yes Children Family History Reviewed: Yes Sibling(s) Family History Reviewed.: Yes Medication/Allergy Home Medications: RX: Citalopram Hydrobromide [Celexa] 40 mg PO QHS 09/13/11 RX: Olanzapine [Zyprexa] 20 mg PO QHS 09/13/11 RX: Mirabegron [Myrbetriq] 50 mg PO QAM 04/02/19 Ferrous Sulfate [Feosol 325 mg Tablet] 325 mg PO DAILY 04/30/20 Hydrochlorothiazide [Hydrodiuril 25 mg Tablet] 25 mg PO QAM 04/30/20 Metoprolol Succinate [Toprol Xl] 200 mg PO QAM 04/30/20 RX: Irbesartan 300 mg PO QAM 04/30/20 RX: Montelukast Sodium 10 mg PO QAM 04/30/20 Allergies/Adverse Reactions: quetiapine fumarate [From Seroquel] Allergy (Unknown, Verified 08/04/19 15:10) pt unsure Review of Systems Constitutional: PRESENT: weakness Eyes: ABSENT: visual disturbances Ears: ABSENT: hearing changes Cardiovascular: ABSENT: chest pain, dyspnea on exertion, edema, orthropnea, palpitations Respiratory: ABSENT: cough, hemoptysis Gastrointestinal: ABSENT: abdominal pain, constipation, diarrhea, hematemesis, hematochezia, nausea, vomiting Genitourinary: ABSENT: dysuria, hematuria Musculoskeletal: ABSENT: joint swelling Integumentary: ABSENT: rash, wounds Neurological: PRESENT: paresthesias, weakness Psychiatric: ABSENT: anxiety, depression, homidical ideation, suicidal ideation Endocrine: ABSENT: cold intolerance, heat intolerance, menstrual abnormalities, polydipsia, polyuria Hematologic/Lymphatic: ABSENT: easy bleeding, easy bruising, lymphadenopathy Physical Exam Vital Signs: Temp Pulse Resp BP Pulse Ox 98.4 F 80 18 135/72 H 100 04/30/20 11:58 04/30/20 14:00 04/30/20 11:58 04/30/20 11:58 04/30/20 11:58 Intake & Output 04/29/20 04/30/20 05/01/20 06:59 06:59 06:59 Intake Total 585 980 Balance 585 980 Weight 95.1 kg General appearance: PRESENT: no acute distress Head exam: PRESENT: atraumatic, normocephalic Eye exam: PRESENT: PERRLA Ear exam: PRESENT: normal external ear exam Mouth exam: PRESENT: moist, tongue midline Neck exam: PRESENT: full ROM Respiratory exam: PRESENT: clear to auscultation janusz Cardiovascular exam: PRESENT: RRR, +S1, +S2 Pulses: PRESENT: normal dorsalis pedis pul, +2 pedal pulses bilateral Vascular exam: PRESENT: normal capillary refill GI/Abdominal exam: PRESENT: normal bowel sounds, soft Rectal exam: PRESENT: deferred Neurological exam: PRESENT: alert, motor sensory deficit - weakness of the right upper extremity Psychiatric exam: PRESENT: appropriate affect, normal mood Skin exam: PRESENT: dry, intact, warm Results Laboratory Results: 04/30/20 06:11 04/30/20 06:11 04/29/20 04/29/20 04/29/20 19:03 19:03 20:20 WBC RBC Hgb Hct MCV MCH MCHC RDW Plt Count Seg Neutrophils % Sodium Potassium Chloride Carbon Dioxide Anion Gap BUN Creatinine Est GFR ( Amer) Glucose Calcium Phosphorus 3.0 Magnesium 1.8 Total Bilirubin AST Alkaline Phosphatase Ammonia Total Protein Albumin Triglycerides Cholesterol LDL Cholesterol Direct VLDL Cholesterol HDL Cholesterol Amylase 98 Lipase 86.4 TSH 0.53 Free T4 1.96 Urine Color STRAW Urine Appearance CLEAR Urine pH 7.0 Ur Specific [place] 1.004 Urine Protein 100 H Urine Glucose (UA) NEGATIVE Urine Ketones TRACE H Urine Blood MODERATE H Urine Nitrite NEGATIVE Ur Leukocyte Esterase NEGATIVE Urine WBC (Auto) 1 Urine RBC (Auto) 2 04/29/20 04/30/20 04/30/20 22:55 06:11 06:11 WBC 11.6 H RBC 3.88 Hgb 12.0 Hct 35.4 L MCV 91 MCH 30.9 MCHC 33.9 RDW 13.3 Plt Count 330 Seg Neutrophils % 64.8 Sodium 126.5 L Potassium 3.3 L Chloride 89 L Carbon Dioxide 26 Anion Gap 12 BUN 18 Creatinine 0.91 Est GFR ( Amer) > 60 Glucose 111 H Calcium 9.4 Phosphorus Magnesium Total Bilirubin 1.5 H AST 89 H Alkaline Phosphatase 90 Ammonia < 8.7 L Total Protein 7.5 Albumin 4.2 Triglycerides 57 Cholesterol 197.93 LDL Cholesterol Direct 93 VLDL Cholesterol 11.0 HDL Cholesterol 79 Amylase Lipase TSH Free T4 Urine Color Urine Appearance Urine pH Ur Specific [place] Urine Protein Urine Glucose (UA) Urine Ketones Urine Blood Urine Nitrite Ur Leukocyte Esterase Urine WBC (Auto) Urine RBC (Auto) 04/29/20 04/29/20 04/29/20 19:03 19:03 23:42 Creatine Kinase 1524 H 2361 H CK-MB (CK-2) Troponin I 0.041 04/29/20 04/30/20 04/30/20 23:42 06:11 06:11 Creatine Kinase 2452 H CK-MB (CK-2) 11.30 H 10.70 H Troponin I 04/30/20 04/30/20 10:22 10:22 Creatine Kinase 2325 H CK-MB (CK-2) 10.50 H Troponin I Impressions: Chest X-Ray 04/29/20 20:28 IMPRESSION: No evidence of active intrathoracic disease. Shoulder X-Ray 04/29/20 20:28 IMPRESSION: No evidence of acute bony injury to the shoulder. Severe osteoarthritis Head MRI 04/30/20 00:00 IMPRESSION: Benign meningioma. EVIDENCE OF ACUTE STROKE: NO. Assessment & Plan - Diagnosis (1) Rhabdomyolysis Qualifiers: Rhabdomyolysis type: traumatic Encounter type: initial encounter Qualified Code(s): T79.6XXA - Traumatic ischemia of muscle, initial encounter Is this a current diagnosis for this admission?: Yes Plan: She has traumatic rhabdomyolysis, She fell on the floor for prolonged period of time, the etiology of the fall is not clear, she has hyponatremia history of SIADH, patient needs hydration to prevent kidney injury but because of the hyponatremia she can only be slowly hydrated to prevent pontine myelolysis (2) Hyponatremia Is this a current diagnosis for this admission?: Yes Plan: Patient with a history of SIADH, slow hydration with normal saline (3) Benign meningioma Is this a current diagnosis for this admission?: Yes Plan: , She has newly diagnosed benign meningioma in the left anterior middle cranial fossa This is incidental finding she will need serial MRI outpatient may need evaluation by neurosurgery, outpatient. The MRI appearance is consistent with benign meningioma - Time Time Spent: Greater than 70 Minutes Medications reviewed and adjusted accordingly: Yes Anticipated Discharge Disposition: Home, Self Care Anticipated Discharge Timeframe: within 72 hours - Inpatient Certification Based on my medical assessment, after consideration of the patient's comorbidities, presenting symptoms, or acuity I expect that the services needed warrant INPATIENT care.: Yes I certify that my determination is in accordance with my understanding of Medicare's requirements for reasonable and necessary INPATIENT services [42 CFR 412.3e].: Yes
[2020-04-30] MEDS: OLANZAPINE 5 MG TABLET PO SCH (21:15)
[2020-04-30] MEDS: ENOXAPARIN SODIUM INJ 40 MG/0.4 ML DISP.SYRIN SUBCUT SCH (21:15)
[2020-04-30] MEDS: CITALOPRAM HYDROBROMIDE 20 MG TABLET PO SCH (21:15)
[2020-05-01] MEDS: NORMAL SALINE 1000 ML 1,000 ML IV PRN ×2 (03:42→23:20)
[2020-05-01 05:25] LABS: ABSOLUTE EOSINOPHILS # (AUTO) 0.1 10^3/uL (0.0-0.6); ABSOLUTE LYMPHOCYTES (AUTO) 2.4 10^3/uL (0.5-4.7); ABSOLUTE MONOCYTES (AUTO) 1.3 10^3/uL (0.1-1.4); ABSOLUTE NEUT (AUTO) 4.5 10^3/uL (1.7-8.2); BASOPHILS % (AUTO) 0.3 % (0-2); EOSINOPHILS % (AUTO) 1.6 % (0-6); HEMATOCRIT 33.6 % (36.0-47.0); HEMOGLOBIN 11.6 g/dL (12.0-15.5); MEAN CORPUSCULAR HEMOGLOBIN 31.5 pg (27.0-33.4); MEAN CORPUSCULAR HGB CONC 34.5 g/dL (32.0-36.0); MEAN CORPUSCULAR VOLUME 91 fl (80-97); MONOCYTES % (AUTO) 15.5 % (3-13); PLATELET COUNT 293 10^3/uL (150-450); RED BLOOD COUNT 3.68 10^6/uL (3.72-5.28); RED CELL DISTRIBUTION WIDTH 13.1 % (11.5-14.0); SEGMENTED NEUTROPHILS % (AUTO) 53.6 % (42-78); TOTAL CELLS COUNTED % (AUTO) 100 %; WHITE BLOOD COUNT 8.4 10^3/uL (4.0-10.5)
[2020-05-01] MEDS: LOSARTAN POTASSIUM 50 MG TABLET PO SCH (11:00)
[2020-05-01] MEDS: METOPROLOL SUCCINATE 50 MG TAB.SR.24H PO SCH (11:00)
[2020-05-01] MEDS: HYDROCHLOROTHIAZIDE 25 MG TABLET PO SCH (11:00)
[2020-05-01] MEDS: MONTELUKAST SODIUM 10 MG TABLET PO SCH (11:01)
[2020-05-01] MEDS: FERROUS SULFATE 325 MG TABLET PO SCH (11:01)
[2020-05-01] MEDS: NYSTATIN TOPICAL POWDER 15 GM TP SCH ×2 (11:01→17:49)
--- NOTE | 2020-05-01 14:15 | PDOC PROGRESS REPORT ---
Subjective Progress Note for:: 05/01/20 Subjective:: Patient seen by the bedside, she is more alert today, she has flexion deformity of the fingers of the right hand, she said this is chronic Reason For Visit: HYPONATREMIA,WEAKNESS,FALL,ELEVATED CK Physical Exam Vital Signs: Temp Pulse Resp BP Pulse Ox 97.3 F 69 18 158/96 H 100 05/01/20 11:49 05/01/20 11:49 05/01/20 11:49 05/01/20 11:49 05/01/20 11:49 Intake & Output 04/30/20 05/01/20 05/02/20 06:59 06:59 06:59 Intake Total 585 2080 500 Output Total 0 400 Balance 585 2080 100 Weight 95.1 kg 96.8 kg General appearance: PRESENT: no acute distress Eye exam: PRESENT: PERRLA Cardiovascular exam: PRESENT: +S1, +S2 GI/Abdominal exam: PRESENT: soft Neurological exam: PRESENT: alert, CN II-XII grossly intact Results Laboratory Results: 05/01/20 05:08 04/30/20 06:11 05/01/20 05:08 WBC 8.4 RBC 3.68 L Hgb 11.6 L Hct 33.6 L MCV 91 MCH 31.5 MCHC 34.5 RDW 13.1 Plt Count 293 Seg Neutrophils % 53.6 04/29/20 04/29/20 04/29/20 19:03 19:03 23:42 Creatine Kinase 1524 H 2361 H CK-MB (CK-2) Troponin I 0.041 04/29/20 04/30/20 04/30/20 23:42 06:11 06:11 Creatine Kinase 2452 H CK-MB (CK-2) 11.30 H 10.70 H Troponin I 04/30/20 04/30/20 10:22 10:22 Creatine Kinase 2325 H CK-MB (CK-2) 10.50 H Troponin I Impressions: Chest X-Ray 04/29/20 20:28 IMPRESSION: No evidence of active intrathoracic disease. Shoulder X-Ray 04/29/20 20:28 IMPRESSION: No evidence of acute bony injury to the shoulder. Severe osteoarthritis Head MRI 04/30/20 00:00 IMPRESSION: Benign meningioma. EVIDENCE OF ACUTE STROKE: NO. Assessment & Plan - Diagnosis (1) Rhabdomyolysis Qualifiers: Rhabdomyolysis type: traumatic Encounter type: initial encounter Qualified Code(s): T79.6XXA - Traumatic ischemia of muscle, initial encounter Is this a current diagnosis for this admission?: Yes Plan: Continue hydration with fluid (2) Hyponatremia Is this a current diagnosis for this admission?: Yes (3) Benign meningioma Is this a current diagnosis for this admission?: Yes Plan: This is incidental finding of a benign meningioma, follow outpatient with neurosurgery - Time Time Spent with patient: 35 or more minutes Level of Care: IMCU Medications reviewed and adjusted accordingly: Yes Anticipated discharge: Home Anticipated DC Timeframe: within 72 hours - Inpatient Certification Based on my medical assessment, after consideration of the patient's comorbidities, presenting symptoms, or acuity I expect that the services needed warrant INPATIENT care.: Yes I certify that my determination is in accordance with my understanding of Medicare's requirements for reasonable and necessary INPATIENT services [42 CFR 412.3e].: Yes
[2020-05-01 14:33] LABS: ALBUMIN 3.5 g/dL (3.5-5.0); ALKALINE PHOSPHATASE 75 U/L (38-126); ANION GAP 8 (5-19); ASPARTATE AMINO TRANSFERASE 71 U/L (14-36); BILIRUBIN,DIRECT 0.3 mg/dL (0.0-0.4); BILIRUBIN,TOTAL 0.9 mg/dL (0.2-1.3); BLOOD UREA NITROGEN 21 mg/dL (7-20); CALCIUM 8.9 mg/dL (8.4-10.2); CARBON DIOXIDE 27 mmol/L (22-30); CHLORIDE 92 mmol/L (98-107); GLUCOSE 109 mg/dL (75-110); TOTAL PROTEIN 6.6 g/dL (6.3-8.2)
[2020-05-01] MEDS: OLANZAPINE 5 MG TABLET PO SCH (21:19)
[2020-05-01] MEDS: CITALOPRAM HYDROBROMIDE 20 MG TABLET PO SCH (21:19)
[2020-05-01] MEDS: ENOXAPARIN SODIUM INJ 40 MG/0.4 ML DISP.SYRIN SUBCUT SCH (21:19)
[2020-05-01] MEDS: HYDROCODONE/ACETAMINOPHEN 5-325 MG TABLET PO PRN (21:23)
[2020-05-02 07:25] LABS: ABSOLUTE BASOPHILS # (AUTO) 0.1 10^3/uL (0.0-0.2); ABSOLUTE EOSINOPHILS # (AUTO) 0.2 10^3/uL (0.0-0.6); ABSOLUTE LYMPHOCYTES (AUTO) 2.5 10^3/uL (0.5-4.7); ABSOLUTE MONOCYTES (AUTO) 1.2 10^3/uL (0.1-1.4); ABSOLUTE NEUT (AUTO) 4.7 10^3/uL (1.7-8.2); BASOPHILS % (AUTO) 1.2 % (0-2); EOSINOPHILS % (AUTO) 2.4 % (0-6); HEMATOCRIT 34.7 % (36.0-47.0); LYMPHOCYTES % (AUTO) 28.5 % (13-45); MEAN CORPUSCULAR HEMOGLOBIN 31.5 pg (27.0-33.4); MEAN CORPUSCULAR HGB CONC 34.6 g/dL (32.0-36.0); MEAN CORPUSCULAR VOLUME 91 fl (80-97); MONOCYTES % (AUTO) 13.4 % (3-13); PLATELET COUNT 315 10^3/uL (150-450); RED BLOOD COUNT 3.81 10^6/uL (3.72-5.28); RED CELL DISTRIBUTION WIDTH 13.6 % (11.5-14.0); SEGMENTED NEUTROPHILS % (AUTO) 54.5 % (42-78); TOTAL CELLS COUNTED % (AUTO) 100 %; WHITE BLOOD COUNT 8.6 10^3/uL (4.0-10.5)
[2020-05-02] MEDS: METOPROLOL SUCCINATE 50 MG TAB.SR.24H PO SCH (09:16)
[2020-05-02] MEDS: HYDROCHLOROTHIAZIDE 25 MG TABLET PO SCH (09:17)
[2020-05-02] MEDS: FERROUS SULFATE 325 MG TABLET PO SCH (09:17)
[2020-05-02] MEDS: LOSARTAN POTASSIUM 50 MG TABLET PO SCH (09:17)
[2020-05-02] MEDS: MONTELUKAST SODIUM 10 MG TABLET PO SCH (09:17)
[2020-05-02] MEDS: NYSTATIN TOPICAL POWDER 15 GM TP SCH ×2 (09:17→17:48)
[2020-05-02 12:15] LABS: ALBUMIN 3.7 g/dL (3.5-5.0); ALKALINE PHOSPHATASE 66 U/L (38-126); ANION GAP 6 (5-19); ASPARTATE AMINO TRANSFERASE 59 U/L (14-36); BILIRUBIN,DIRECT 0.3 mg/dL (0.0-0.4); BILIRUBIN,TOTAL 0.8 mg/dL (0.2-1.3); BLOOD UREA NITROGEN 22 mg/dL (7-20); CARBON DIOXIDE 30 mmol/L (22-30); CHLORIDE 93 mmol/L (98-107); GLUCOSE 102 mg/dL (75-110); POTASSIUM 4.5 mmol/L (3.6-5.0); TOTAL PROTEIN 6.8 g/dL (6.3-8.2)
--- NOTE | 2020-05-02 15:35 | PDOC PROGRESS REPORT ---
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 I discussed all these findings with patient's daughter today Reason For Visit: HYPONATREMIA,WEAKNESS,FALL,ELEVATED CK Physical Exam Vital Signs: Temp Pulse Resp BP Pulse Ox 98.7 F 71 18 133/67 H 100 05/02/20 11:55 05/02/20 11:55 05/02/20 11:55 05/02/20 11:55 05/02/20 11:55 Intake & Output 05/01/20 05/02/20 05/03/20 06:59 06:59 06:59 Intake Total 0 1962 650 Output Total 0 2350 800 Balance 2080 -388 -150 Weight 96.8 kg 95 kg General appearance: PRESENT: no acute distress Eye exam: PRESENT: PERRLA Respiratory exam: PRESENT: clear to auscultation janusz Cardiovascular exam: PRESENT: +S1, +S2 GI/Abdominal exam: PRESENT: soft Neurological exam: PRESENT: alert Results Laboratory Results: 05/02/20 06:40 05/02/20 06:40 05/02/20 05/02/20 06:40 06:40 WBC 8.6 RBC 3.81 Hgb 12.0 Hct 34.7 L MCV 91 MCH 31.5 MCHC 34.6 RDW 13.6 Plt Count 315 Seg Neutrophils % 54.5 Sodium 128.8 L Potassium 4.5 Chloride 93 L Carbon Dioxide 30 Anion Gap 6 BUN 22 H Creatinine 1.08 Est GFR ( Amer) > 60 Glucose 102 Calcium 9.0 Total Bilirubin 0.8 AST 59 H Alkaline Phosphatase 66 Total Protein 6.8 Albumin 3.7 04/29/20 20:20 Clean Catch Midstream Urine Culture - Final NO GROWTH 2 DAYS 04/29/20 04/29/20 04/29/20 19:03 19:03 23:42 Creatine Kinase 1524 H 2361 H CK-MB (CK-2) Troponin I 0.041 04/29/20 04/30/20 04/30/20 23:42 06:11 06:11 Creatine Kinase 2452 H CK-MB (CK-2) 11.30 H 10.70 H Troponin I 04/30/20 04/30/20 10:22 10:22 Creatine Kinase 2325 H CK-MB (CK-2) 10.50 H Troponin I Impressions: Chest X-Ray 04/29/20 20:28 IMPRESSION: No evidence of active intrathoracic disease. Shoulder X-Ray 04/29/20 20:28 IMPRESSION: No evidence of acute bony injury to the shoulder. Severe osteoarthritis Head MRI 04/30/20 00:00 IMPRESSION: Benign meningioma. EVIDENCE OF ACUTE STROKE: NO. Assessment & Plan - Diagnosis (1) Rhabdomyolysis Qualifiers: Rhabdomyolysis type: traumatic Encounter type: initial encounter Qualified Code(s): T79.6XXA - Traumatic ischemia of muscle, initial encounter Is this a current diagnosis for this admission?: Yes Plan: Continue hydration with fluid (2) Hyponatremia Is this a current diagnosis for this admission?: Yes (3) Benign meningioma Is this a current diagnosis for this admission?: Yes Plan: This is incidental finding of a benign meningioma, follow outpatient with neurosurgery - Time Time Spent with patient: 25-34 minutes Level of Care: IMCU Anticipated discharge: Home Anticipated DC Timeframe: within 72 hours
[2020-05-02] MEDS: NORMAL SALINE 1000 ML 1,000 ML IV PRN (19:20)
[2020-05-02] MEDS: CITALOPRAM HYDROBROMIDE 20 MG TABLET PO SCH (21:43)
[2020-05-02] MEDS: OLANZAPINE 5 MG TABLET PO SCH (21:44)
[2020-05-02] MEDS: ENOXAPARIN SODIUM INJ 40 MG/0.4 ML DISP.SYRIN SUBCUT SCH (21:45)
[2020-05-03] MEDS: HYDROCODONE/ACETAMINOPHEN 5-325 MG TABLET PO PRN (03:45)
[2020-05-03] MEDS: METOPROLOL SUCCINATE 50 MG TAB.SR.24H PO SCH (08:30)
[2020-05-03] MEDS: MONTELUKAST SODIUM 10 MG TABLET PO SCH (08:30)
[2020-05-03] MEDS: LOSARTAN POTASSIUM 50 MG TABLET PO SCH (08:30)
[2020-05-03] MEDS: HYDROCHLOROTHIAZIDE 25 MG TABLET PO SCH (08:30)
[2020-05-03] MEDS: FERROUS SULFATE 325 MG TABLET PO SCH (10:43)
[2020-05-03] MEDS: NYSTATIN TOPICAL POWDER 15 GM TP SCH ×2 (10:43→17:18)
[2020-05-03] MEDS: NORMAL SALINE 1000 ML 1,000 ML IV PRN (14:50)
[2020-05-03 17:37] LABS: ALBUMIN 3.8 g/dL (3.5-5.0); ALKALINE PHOSPHATASE 70 U/L (38-126); ANION GAP 5 (5-19); ASPARTATE AMINO TRANSFERASE 50 U/L (14-36); BILIRUBIN,DIRECT 0.4 mg/dL (0.0-0.4); BILIRUBIN,TOTAL 0.7 mg/dL (0.2-1.3); BLOOD UREA NITROGEN 24 mg/dL (7-20); CALCIUM 9.2 mg/dL (8.4-10.2); CARBON DIOXIDE 32 mmol/L (22-30); CHLORIDE 93 mmol/L (98-107); GLUCOSE 103 mg/dL (75-110); POTASSIUM 5.1 mmol/L (3.6-5.0); TOTAL PROTEIN 6.9 g/dL (6.3-8.2)
[2020-05-03] MEDS: ENOXAPARIN SODIUM INJ 40 MG/0.4 ML DISP.SYRIN SUBCUT SCH (20:54)
--- NOTE | 2020-05-03 22:11 | PDOC PROGRESS REPORT ---
Subjective Progress Note for:: 05/03/20 Subjective:: Patient is alert, seen today by physical therapy Reason For Visit: HYPONATREMIA,WEAKNESS,FALL,ELEVATED CK Physical Exam Vital Signs: Temp Pulse Resp BP Pulse Ox 98.4 F 73 18 181/65 H 100 05/03/20 15:09 05/03/20 19:00 05/03/20 15:09 05/03/20 15:09 05/03/20 15:09 Intake & Output 05/02/20 05/03/20 05/04/20 06:59 06:59 06:59 Intake Total 1962 3110 2255 Output Total 2350 3750 1900 Balance -388 -640 355 Weight 95 kg 96.3 kg General appearance: PRESENT: no acute distress Eye exam: PRESENT: PERRLA Respiratory exam: PRESENT: clear to auscultation janusz Cardiovascular exam: PRESENT: +S1, +S2 GI/Abdominal exam: PRESENT: soft Neurological exam: PRESENT: alert Results Laboratory Results: 05/02/20 06:40 05/03/20 16:58 05/03/20 16:58 Sodium 129.7 L Potassium 5.1 H Chloride 93 L Carbon Dioxide 32 H Anion Gap 5 BUN 24 H Creatinine 0.86 Est GFR ( Amer) > 60 Glucose 103 Calcium 9.2 Total Bilirubin 0.7 AST 50 H Alkaline Phosphatase 70 Total Protein 6.9 Albumin 3.8 04/29/20 04/29/20 04/29/20 19:03 19:03 23:42 Creatine Kinase 1524 H 2361 H CK-MB (CK-2) Troponin I 0.041 04/29/20 04/30/20 04/30/20 23:42 06:11 06:11 Creatine Kinase 2452 H CK-MB (CK-2) 11.30 H 10.70 H Troponin I 04/30/20 04/30/20 10:22 10:22 Creatine Kinase 2325 H CK-MB (CK-2) 10.50 H Troponin I Impressions: Chest X-Ray 04/29/20 20:28 IMPRESSION: No evidence of active intrathoracic disease. Shoulder X-Ray 04/29/20 20:28 IMPRESSION: No evidence of acute bony injury to the shoulder. Severe osteoarthritis Head MRI 04/30/20 00:00 IMPRESSION: Benign meningioma. EVIDENCE OF ACUTE STROKE: NO. Assessment & Plan - Diagnosis (1) Rhabdomyolysis Qualifiers: Rhabdomyolysis type: traumatic Encounter type: initial encounter Qualified Code(s): T79.6XXA - Traumatic ischemia of muscle, initial encounter Is this a current diagnosis for this admission?: Yes Plan: Continue hydration with fluid (2) Hyponatremia Is this a current diagnosis for this admission?: Yes Plan: History of SIADH (3) Benign meningioma Is this a current diagnosis for this admission?: Yes Plan: This is incidental finding of a benign meningioma, follow outpatient with neurosurgery - Time Time Spent with patient: 25-34 minutes Level of Care: IMCU Medications reviewed and adjusted accordingly: Yes Anticipated discharge: Home Anticipated DC Timeframe: within 72 hours - Inpatient Certification Based on my medical assessment, after consideration of the patient's comorbidities, presenting symptoms, or acuity I expect that the services needed warrant INPATIENT care.: No I certify that my determination is in accordance with my understanding of Medicare's requirements for reasonable and necessary INPATIENT services [42 CFR 412.3e].: No
[2020-05-03] MEDS: CITALOPRAM HYDROBROMIDE 20 MG TABLET PO SCH (23:16)
[2020-05-03] MEDS: OLANZAPINE 5 MG TABLET PO SCH (23:16)
[2020-05-04] MEDS: METOPROLOL SUCCINATE 50 MG TAB.SR.24H PO SCH (08:42)
[2020-05-04] MEDS: LOSARTAN POTASSIUM 50 MG TABLET PO SCH (08:43)
[2020-05-04] MEDS: HYDROCHLOROTHIAZIDE 25 MG TABLET PO SCH (08:43)
[2020-05-04] MEDS: MONTELUKAST SODIUM 10 MG TABLET PO SCH (08:43)
[2020-05-04] MEDS: FERROUS SULFATE 325 MG TABLET PO SCH (09:59)
[2020-05-04] MEDS: NYSTATIN TOPICAL POWDER 15 GM TP SCH (10:01)
[2020-05-04 10:45] LABS: ALBUMIN 4.1 g/dL (3.5-5.0); ALKALINE PHOSPHATASE 67 U/L (38-126); ANION GAP 12 (5-19); ASPARTATE AMINO TRANSFERASE 42 U/L (14-36); BILIRUBIN,DIRECT 0.2 mg/dL (0.0-0.4); BILIRUBIN,TOTAL 0.8 mg/dL (0.2-1.3); BLOOD UREA NITROGEN 18 mg/dL (7-20); CALCIUM 9.4 mg/dL (8.4-10.2); CARBON DIOXIDE 29 mmol/L (22-30); CHLORIDE 91 mmol/L (98-107); GLUCOSE 207 mg/dL (75-110); POTASSIUM 4.2 mmol/L (3.6-5.0); TOTAL PROTEIN 7.2 g/dL (6.3-8.2)
[2020-05-04 14:33] VITALS: BP 156/63
--- NOTE | 2020-05-04 17:46 | PDOC DISCHARGE SUMMARY ---
Impression - Admit/DC Date/PCP Admission Date/Primary Care Provider: 04/29/20 21:38 FRANDY REN MD Discharge Date: 05/04/20 - Discharge Diagnosis (1) Rhabdomyolysis Is this a current diagnosis for this admission?: Yes (2) Hyponatremia Is this a current diagnosis for this admission?: Yes (3) Benign meningioma Is this a current diagnosis for this admission?: Yes (4) Syndrome of inappropriate ADH (SIADH) secretion Is this a current diagnosis for this admission?: Yes - Additional Information Discharge Diet: Cardiac Discharge Activity: Activity As Tolerated, Balance Activity w/Rest Referrals: FRANDY REN MD [Primary Care Provider] - 05/11/20 1:45 pm Home Medications: RX: Citalopram Hydrobromide [Celexa] 40 mg PO QHS 09/13/11 RX: Olanzapine [Zyprexa] 20 mg PO QHS 09/13/11 RX: Mirabegron [Myrbetriq] 50 mg PO QAM 04/02/19 RX: Ferrous Sulfate [Feosol 325 mg Tablet] 325 mg PO DAILY 04/30/20 RX: Hydrochlorothiazide [Hydrodiuril 25 mg Tablet] 25 mg PO QAM 04/30/20 RX: Irbesartan 300 mg PO QAM 04/30/20 RX: Metoprolol Succinate [Toprol Xl] 200 mg PO QAM 04/30/20 RX: Montelukast Sodium 10 mg PO QAM 04/30/20 History of Present Illiness History of Present Illness: GET OTTO is a 74 year old female,She came to the emergency room last night for evaluation of fall, the history was that she got up to go to the bathroom, lost her balance, fell forward against the wall and then slid to the ground. She stated that she was too weak to get up off the ground and called EMS. She lives by herself. She complain of left shoulder pain from trying to get a set up, she denies pain from landing on the shoulder. She denies any head injury, focal numbness or weakness no back pain no hip pain there was no urinary incontinence passing out there was no antecedent chest pain, shortness of breath, loss of consciousness, fever, vomiting or diarrhea before she fell. She was on the floor for several hours, in the emergency room she was evaluated she was found to have hyponatremia, Elevated serum CPK suggestive of rhabdomyolysis probably from the fall. She has a history of SIADH,Patient was seen on the floor today, and on evaluation the right arm was weak somewhat drooping suggestive of a stroke, MRI of the brain was obtained initially without contrast, it demonstrated in the medial left temporal lobe, a 10 mm well circumscribed lesion that is high signal on FLAIR sequence and similar to adjacent brain on TI, there was no restricted diffusion, there was no associated edema there was high signal intensity lesions scattered throughout the white matter on FLAIR imaging with distribution suggesting chronic microvascular ischemic change. sulci and gyri normal in size there was concern for a meningioma MRI with contrast recommended, this was obtained this demonstrated a left anterior middle cranial fossa lesion that measures 14 x 10 x 15 mm in the AP by transverse dimension consistent with benign meningioma . Hospital Course Hospital Course: Patient was admitted for the management of hyponatremia, rhabdomyolysis, incidental finding of benign meningioma. She fell at home on the floor for prolonged period of time, stroke was suspected as a potential etiology of the fall, MRI of the brain was obtained initially without contrast, a benign meningioma was suspected from the MRI without contrast, MRI with contrast was obtained this confirmed benign meningioma. She was hyponatremic due to SIADH she was treated with normal saline at a low infusion rate. She also required IV fluid for the treatment of the Rhabdomyoma with the intent to prevent kidney injury .Patient was seen by physical therapy in the hospital, rehabilitation was recommended by physical therapy, patient refused to go to a long term for rehabilitation she preferred to be discharged home on for home health to administer physical therapy at home Physical Exam Vital Signs: Temp Pulse Resp BP Pulse Ox 98.0 F 84 14 156/63 H 100 05/04/20 14:31 05/04/20 14:31 05/04/20 14:31 05/04/20 14:31 05/04/20 14:31 Intake & Output 05/03/20 05/04/20 05/05/20 06:59 06:59 06:59 Intake Total 3110 2505 1000 Output Total 3750 3200 Balance -640 -695 1000 Weight 96.3 kg General appearance: PRESENT: no acute distress Eye exam: PRESENT: PERRLA Respiratory exam: PRESENT: clear to auscultation janusz Cardiovascular exam: PRESENT: +S1, +S2 GI/Abdominal exam: PRESENT: soft Neurological exam: PRESENT: alert, CN II-XII grossly intact Results Laboratory Results: WBC 8.6 10^3/uL (4.0-10.5) 05/02/20 06:40 RBC 3.81 10^6/uL (3.72-5.28) 05/02/20 06:40 Hgb 12.0 g/dL (12.0-15.5) 05/02/20 06:40 Hct 34.7 % (36.0-47.0) L 05/02/20 06:40 MCV 91 fl (80-97) 05/02/20 06:40 MCH 31.5 pg (27.0-33.4) 05/02/20 06:40 MCHC 34.6 g/dL (32.0-36.0) 05/02/20 06:40 RDW 13.6 % (11.5-14.0) 05/02/20 06:40 Plt Count 315 10^3/uL (150-450) 05/02/20 06:40 Lymph % (Auto) 28.5 % (13-45) 05/02/20 06:40 [place] % (Auto) 13.4 % (3-13) H 05/02/20 06:40 Eos % (Auto) 2.4 % (0-6) 05/02/20 06:40 Baso % (Auto) 1.2 % (0-2) 05/02/20 06:40 Absolute Neuts (auto) 4.7 10^3/uL (1.7-8.2) 05/02/20 06:40 Absolute Lymphs (auto) 2.5 10^3/uL (0.5-4.7) 05/02/20 06:40 Absolute Monos (auto) 1.2 10^3/uL (0.1-1.4) 05/02/20 06:40 Absolute Eos (auto) 0.2 10^3/uL (0.0-0.6) 05/02/20 06:40 Absolute Basos (auto) 0.1 10^3/uL (0.0-0.2) 05/02/20 06:40 Seg Neutrophils % 54.5 % (42-78) 05/02/20 06:40 PT 14.1 SEC (11.4-15.4) 04/29/20 19:03 INR 1.07 04/29/20 19:03 APTT 28.3 SEC (23.5-35.8) 04/29/20 19:03 Sodium 131.8 mmol/L (137-145) L 05/04/20 09:44 Potassium 4.2 mmol/L (3.6-5.0) 05/04/20 09:44 Chloride 91 mmol/L (98-107) L 05/04/20 09:44 Carbon Dioxide 29 mmol/L (22-30) 05/04/20 09:44 Anion Gap 12 (5-19) 05/04/20 09:44 BUN 18 mg/dL (7-20) 05/04/20 09:44 Creatinine 0.84 mg/dL (0.52-1.25) 05/04/20 09:44 Est GFR ( Amer) > 60 (>60) 05/04/20 09:44 Est GFR (MDRD) Non-Af > 60 (>60) 05/04/20 09:44 Glucose 207 mg/dL (75-110) H 05/04/20 09:44 Hemoglobin A1c % 5.3 % (4.7-6.0) 04/30/20 06:11 Calcium 9.4 mg/dL (8.4-10.2) 05/04/20 09:44 Phosphorus 3.0 mg/dL (2.5-4.5) 04/29/20 19:03 Magnesium 1.8 mg/dL (1.6-2.3) 04/29/20 19:03 Total Bilirubin 0.8 mg/dL (0.2-1.3) 05/04/20 09:44 Direct Bilirubin 0.2 mg/dL (0.0-0.4) 05/04/20 09:44 Neonat Total Bilirubin Not Reportable 05/04/20 09:44 Neonat Direct Bilirubin Not Reportable 05/04/20 09:44 Neonat Indirect Bili Not Reportable 05/04/20 09:44 AST 42 U/L (14-36) H 05/04/20 09:44 ALT 28 U/L (<35) 05/04/20 09:44 Alkaline Phosphatase 67 U/L (38-126) 05/04/20 09:44 Ammonia < 8.7 umol/L (9-33) L 04/29/20 22:55 Creatine Kinase 2325 U/L (30-135) H 04/30/20 10:22 CK-MB (CK-2) 10.50 ng/mL (<4.55) H 04/30/20 10:22 Troponin I 0.041 ng/mL 04/29/20 19:03 Total Protein 7.2 g/dL (6.3-8.2) 05/04/20 09:44 Albumin 4.1 g/dL (3.5-5.0) 05/04/20 09:44 Triglycerides 57 mg/dL (<150) 04/30/20 06:11 Cholesterol 197.93 mg/dL (0-200) 04/30/20 06:11 LDL Cholesterol Direct 93 mg/dL (<100) 04/30/20 06:11 VLDL Cholesterol 11.0 mg/dL (10-31) 04/30/20 06:11 HDL Cholesterol 79 mg/dL (>40) 04/30/20 06:11 Amylase 98 U/L (30-110) 04/29/20 19:03 Lipase 86.4 U/L (23-300) 04/29/20 19:03 TSH 0.53 uIU/mL (0.47-4.68) 04/29/20 19:03 Free T4 1.96 ng/dL (0.78-2.19) 04/29/20 19:03 Urine Color STRAW 04/29/20 20:20 Urine Appearance CLEAR 04/29/20 20:20 Urine pH 7.0 (5.0-9.0) 04/29/20 20:20 Ur Specific [place] 1.004 04/29/20 20:20 Urine Protein 100 mg/dL (NEGATIVE) H 04/29/20 20:20 Urine Glucose (UA) NEGATIVE mg/dL (NEGATIVE) 04/29/20 20:20 Urine Ketones TRACE mg/dL (NEGATIVE) H 04/29/20 20:20 Urine Blood MODERATE (NEGATIVE) H 04/29/20 20:20 Urine Nitrite NEGATIVE (NEGATIVE) 04/29/20 20:20 Urine Bilirubin NEGATIVE (NEGATIVE) 04/29/20 20:20 Urine Urobilinogen NEGATIVE mg/dL (<2.0) 04/29/20 20:20 Ur Leukocyte Esterase NEGATIVE (NEGATIVE) 04/29/20 20:20 Urine WBC (Auto) 1 /HPF 04/29/20 20:20 Urine RBC (Auto) 2 /HPF 04/29/20 20:20 Squamous Epi Cells Auto <1 /HPF 04/29/20 20:20 Urine Mucus (Auto) RARE /LPF 04/29/20 20:20 Urine Ascorbic Acid NEGATIVE (NEGATIVE) 04/29/20 20:20 Urine Opiates Screen NEGATIVE 04/29/20 20:20 Urine Methadone Screen NEGATIVE 04/29/20 20:20 Ur Barbiturates Screen NEGATIVE 04/29/20 20:20 Ur Phencyclidine Scrn NEGATIVE 04/29/20 20:20 Ur Amphetamines Screen NEGATIVE 04/29/20 20:20 U Benzodiazepines Scrn UNCONFIRMED POSITIVE 04/29/20 20:20 Urine Cocaine Screen NEGATIVE 04/29/20 20:20 U Marijuana (THC) Screen NEGATIVE 04/29/20 20:20 04/29/20 04/29/20 04/30/20 19:03 23:42 06:11 CK-MB (CK-2) 11.30 H 10.70 H Troponin I 0.041 04/30/20 10:22 CK-MB (CK-2) 10.50 H Troponin I Impressions: Chest X-Ray 04/29/20 20:28 IMPRESSION: No evidence of active intrathoracic disease. Shoulder X-Ray 04/29/20 20:28 IMPRESSION: No evidence of acute bony injury to the shoulder. Severe osteoarthritis Head MRI 04/30/20 00:00 IMPRESSION: 1. No evidence of acute infarct. 2. Left temporal lobe lesion possibly a small meningioma. If no contraindication, recommend patient have postcontrast study. Otherwise six- month follow-up. EVIDENCE OF ACUTE STROKE: NO. Head MRI 04/30/20 00:00 IMPRESSION: Benign meningioma. EVIDENCE OF ACUTE STROKE: NO. Stroke Is this a Stroke Patient?: No Acute Heart Failure Is this a Heart Failure Patient?: No
== END 2020-05-04 15:29 | disposition home health service (06) | DRG 565 ==
LOC: ER 18:43 → EH 21:38 → 3W 04-30 02:00
PROVIDERS: ADMIT Internal Medicine; ATTEND Internal Medicine
DX: T79.6XXA Traumatic ischemia of muscle, initial encounter (principal); E22.2 Syndrome of inappropriate secretion of antidiuretic hormone; F20.0 Paranoid schizophrenia; D32.9 Benign neoplasm of meninges, unspecified; W01.198A Fall on same level from slipping, tripping and stumbling with subsequent striking against other object, initial encounter; Y92.009 Unspecified place in unspecified non-institutional (private) residence as the place of occurrence of the external cause; I10 Essential (primary) hypertension; E89.0 Postprocedural hypothyroidism; Y83.6 Removal of other organ (partial) (total) as the cause of abnormal reaction of the patient, or of later complication, without mention of misadventure at the time of the procedure; F43.10 Post-traumatic stress disorder, unspecified; F63.2 Kleptomania; D64.9 Anemia, unspecified; Z60.2 Problems related to living alone; Z79.899 Other long term (current) drug therapy; Z88.8 Allergy status to other drugs, medicaments and biological substances; Z86.73 Personal history of transient ischemic attack (TIA), and cerebral infarction without residual deficits
CPT/HCPCS: 36415; 70551; 70552; 71045; 80053; 80061; 80307; 81001; 82140; 82150; 82550; 82553; 83036; 83690; 83735; 84100; 84439; 84443; 84484; 85025; 85610; 85730; 87040; 87086; 93005; 93010; 99285; J1650; J3490; J7030